=== PATIENT | female | born 1960 | race Caucasian/White ===

== ENCOUNTER 2024-11-08 07:30 | Outpatient (OUT) | payer MEDICARE, SELFPAY ==
[2024-11-08 08:04] LABS: Hematocrit 45.7 % (36.0-48.0); Hemoglobin 14.8 g/dL (12.0-16.0); Immature Granulocytes Abs Auto 0.04 10^3/uL (0.00-0.03); Immature Granulocytes Pct Auto 0.6 % (0.0-0.5); Lymphocytes Absolute Auto 2.1 10^3/uL (1.2-3.8); Mean Corpuscular HGB Conc 32.4 g/dL (29.9-35.2); Mean Corpuscular Hemoglobin 29.7 pg (26.7-34.0); Mean Corpuscular Volume 91.8 fL (81.0-99.0); Platelet Count 284 10^3/uL (150-450); Red Blood Count 4.98 10^6/uL (4.20-5.40); White Blood Count 6.6 10^3/uL (4.0-11.0)
[2024-11-08 09:05] LABS: Alanine Aminotransferase 18 U/L (14-59); Albumin Globulin Ratio 1.1; Albumin Level 4.1 g/dL (3.4-5.0); Alkaline Phosphatase 76 U/L (46-116); Anion Gap 13.3; Aspartate Amino Transferase 23 U/L (15-37); Blood Urea Nitrogen 15.0 mg/dL (7.0-18.0); Calcium 9.2 mg/dL (8.5-10.1); Carbon Dioxide 29.0 mmol/L (21.0-32.0); Chloride 99 mmol/L (98-107); Cholesterol 277 mg/dL (<=200); Estimated GFR (African America >60 (>=60 mL/min/1.73m^2); Estimated GFR (Non-African Ame >60 (>=60 mL/min/1.73m^2); Globulin 3.6 g/dL; Glucose 99 mg/dL (74-106); HDL Cholesterol 75 mg/dL (40-60); Potassium 4.3 mmol/L (3.5-5.1); Sodium 137 mmol/L (136-145); Total Protein 7.7 g/dL (6.4-8.2); Triglycerides 232 mg/dL (<=150); VLDL CHOLESTEROL 46.4 mg/dL
== END 2024-11-08 07:31 | disposition home or self-care (01) ==
PROVIDERS: PCP Nurse Practitioner Family; Visit Provider Nurse Practitioner Family
DX: E78.00 Pure hypercholesterolemia, unspecified (principal); I10 Essential (primary) hypertension
CPT/HCPCS: 36415; 80053; 80061; 85025

== ENCOUNTER 2024-11-23 12:45 | Outpatient (OUT) | payer MEDICARE, SELFPAY ==
--- OUTSIDE RECORDS SUMMARY | 2024-11-23 12:48 | XMS_ITS | Continuity of Care Document ---
Author Organization [facility] LOC Address [address] [facility] [place] [address] Care Team Providers Care Delimber Operator Name Role Phone Cheryl Ordonez Primary Care Provider + Encounters Date Type Department Care Team Description 10/13/2024 10:44 AM EDT Hospital Encounter [facility] Diagnostic Radiology [address] [place] [address] Ketan Zhou APRN-CNP Discharge Disposition: Home or Self Care 10/13/2024 10:30 AM EDT Office Visit [facility] [address] [facility] [address] [place] [address] Ketan Zhou APRN-CNP Sprain of left wrist, initial encounter (Primary Dx); Left wrist pain; Pain of left hand 09/06/2024 9:20 AM EDT Office Visit [facility] [address] [place] [address] Juju Nova APRN-CNP Lichen sclerosus of female genitalia (Primary Dx); Anogenital lichen sclerosus 05/13/2024 10:15 AM EST Office Visit [address] [phone] Cheryl Ordonez APRN-CNP Benign hypertension (Primary Dx); Gastroesophageal reflux disease without esophagitis; Arthralgia, unspecified joint; Anxiety disorder, unspecified type; Mixed hyperlipidemia 05/10/[address] [phone] Nettie Gerber LPN Order Request 05/06/2024 Travel 05/06/2024 3:45 PM EST Office Visit [facility] [address] [facility] [address] [place] [address] [place] Strep pharyngitis (Primary Dx); Sore throat; Bilateral impacted cerumen 04/19/2024 Travel 04/19/2024 12:05 PM EST Office Visit [facility] [address] [facility] [address] [place] [address] Lars Bowman CNP Influenza A (Primary Dx); Acute cough; Fever, unspecified fever cause 03/22/2024 Travel 03/22/2024 8:30 AM EST [facility] [address] [facility] [address] [place] [address] [place] Acute bronchitis, unspecified organism (Primary Dx); Cough, unspecified type 03/08/2024 Telephone [facility] [address] [phone] Rebekah Vila LPN Results 03/03/2024 10:40 AM EST Office Visit [facility] [address] [phone] Juju Nova, ADJUSTER ELECTRICAL CONTACTS-DIVISION SUPERVISOR Osteopenia of multiple sites (Primary Dx); Lichen sclerosus of female genitalia; Anogenital lichen sclerosus 03/03/2024 10:00 AM EST - 03/03/2024 11:59 PM EST Hospital Encounter [facility] [address] [phone] Juju Nova, ADJUSTER ELECTRICAL CONTACTS-DIVISION SUPERVISOR Discharge Disposition: Home or Self Care 01/21/2024 10:00 AM EDT Office Visit [facility] [address] Jose Ramon Quevedo [address] [address] Rajani Ceja, Adrian Ortega MD TIA (transient ischemic attack) (Primary Dx) 11/20/2023 8:13 AM EDT - 11/20/2023 11:59 PM EDT Hospital Encounter [facility] MAMMOGRAPHY [address] [place] [address] Juju Nova, ADJUSTER ELECTRICAL CONTACTS-DIVISION SUPERVISOR Discharge Disposition: Home or Self Care 11/19/[address] [place] [address] Miguelina Fallon LPN Medication Management 11/19/[address] [place] [address] Miguelina Fallon LPN Medication Management 11/19/2023 11:00 AM EDT Office Visit [address] [address] Jose C Piña MD TIA (transient ischemic attack) (Primary Dx); Arthralgia, unspecified joint; Anxiety disorder, unspecified type; Benign hypertension; Gastroesophageal reflux disease without esophagitis 11/11/2023 7:57 AM EDT - 11/12/2023 9:18 AM EDT Hospital Encounter [facility] [address] [place] [address] César Freeman MD Martin, Daniel R, MD Aziz, Farhad, MD Discharge Disposition: Home or Self Care 11/11/2023 Travel 11/11/2023 6:01 AM EDT - 11/11/2023 7:26 AM EDT Emergency [facility] Emergency Medicine [address] [place] [address] Britta Covington MD Discharge Disposition: [facility] 11/07/[address] [address] Cheryl Ordonez APRN-MARTINA Benign hypertension 11/02/[address] [address] Karin Son APRN-MARTINA Anxiety disorder, unspecified type 10/23/[address] [address] Cheryl Ordonez APRN-CNP Gastroesophageal reflux disease without esophagitis; Mixed hyperlipidemia 10/22/[address] [address] Cheryl Ordonez APRN-CNP Benign hypertension 10/15/2023 9:20 AM EDT Office Visit [facility] [address] [place] [phone] Juju Nova APRN-CNP Encounter for gynecological examination (general) (routine) with abnormal findings (Primary Dx); Screening for vaginal cancer; Encounter for screening mammogram for malignant neoplasm of breast; Screening for colon cancer 10/09/[address] [address] Cheryl Ordonez APRN-CNP Mixed hyperlipidemia; Arthralgia, unspecified joint; Gastroesophageal reflux disease without esophagitis 07/04/[address] [address] Jose C Piña MD Other 07/03/[address] [address] Cheryl Ordonez APRN-CNP Appointment 07/02/[address] [address] Karin Son APRN-MARTINA Anxiety disorder, unspecified type 07/02/[address] [address] Karin Son APRN-MARTINA Benign hypertension 07/02/2023 8:30 AM EDT Office Visit [address] [address] Karin Son APRN-MARTINA Anxiety disorder, unspecified type; Benign hypertension 06/19/2023 2:20 PM EDT Office Visit [facility] Otolaryngology [address] [place] [phone] James Page MD Allergic rhinitis due to dust (Primary Dx); Dysfunction of both eustachian tubes; Bilateral impacted cerumen; Right ear pain 06/07/[address] [place] [address] Karin Son, ADJUSTER ELECTR[employer] CONTACTS-MARTINA Anxiety disorder, unspecified type 06/06/2023 Telephone [facility] [address] [place] [address] Carla Roa CNP Appointment 06/05/[address] [place] [address] Katy Collado LPN Results 06/04/2023 9:15 AM EDT Office Visit [address] [place] [address] Cheryl Ordonez, ADJUSTER ELECTRICAL CONTACTS-Karin Saldaña, ADJUSTER ELECTRICAL CONTACTS-DIVISION SUPERVISOR Dizziness (Primary Dx); Benign hypertension; Anxiety disorder, unspecified type 06/02/2023 10:30 AM EDT Office Visit [facility] 600 [facility] 201 [place] [address] Gali Gold, ADJUSTER ELECTRICAL CONTACTS-DIVISION SUPERVISOR Juan DiegoTimbo, [place] Influenza B (Primary Dx); Cough, unspecified type; Sinus congestion 05/14/[address] [place] [address] Jose C Piña MD Referral 05/13/[address] [place] [address] Maria Del Rosario Villalpando Referral 05/12/2023 Travel 05/12/2023 12:44 PM EST - 05/12/2023 3:49 PM EST Emergency [facility] Emergency Medicine [address] [place] [phone] Tin Lennon MD Discharge Disposition: Home or Self Care 05/07/2023 9:00 AM EST Office Visit [address] [place] [address] Karin Son, ADJUSTER ELECTRICAL CONTACTS-DIVISION SUPERVISOR Anxiety disorder, unspecified type (Primary Dx); Mixed hyperlipidemia; Primary hypertension 04/24/[address] [address] Farnsworth Nettie Results 04/23/2023 9:45 AM EST Office Visit [address] [address] Karin Son, ADJUSTER ELECTRICAL CONTACTS-DIVISION SUPERVISOR Anxiety disorder, unspecified type (Primary Dx); Mixed hyperlipidemia; Benign hypertension; Arthralgia, unspecified joint; Gastroesophageal reflux disease without esophagitis 04/22/[address] [address] Jose C Piña MD Irritable bowel syndrome, unspecified type 04/20/2023 Travel 04/20/2023 8:35 AM EST - 04/20/2023 10:35 AM EST Emergency [facility] Medicine [address] [place] [phone] Ayse Saldaña DO Discharge Disposition: Home or Self Care 04/18/[address] [address] Jose C Piña MD Appointment 04/17/2023 11:41 AM EST - 04/17/2023 2:04 PM EST Emergency [facility] Emergency Department [address] [place] [phone] Hunter Davis MD Discharge Disposition: Home or Self Care 03/31/2023 9:20 AM EST Office Visit [facility] Otolaryngology [address] [place] [phone] James Page MD Allergic rhinitis due to dust (Primary Dx); Chronic sinusitis, unspecified location; Hearing loss of right ear, unspecified hearing loss type; Impacted cerumen of right ear; Post-nasal drip; Dysfunction of both eustachian tubes 03/24/[address] [address] Jose C Piña MD Gastroesophageal reflux disease without esophagitis 03/12/2023 Travel 03/12/2023 10:00 AM EST Office Visit [facility] [address] [address] Juju Nova, ADJUSTER ELECTRICAL CONTACTS-DIVISION SUPERVISOR Lichen sclerosus of female genitalia (Primary Dx); Anogenital lichen sclerosus 12/18/2022 9:40 AM EDT Office Visit [facility] [address] [address] Juju Nova, ADJUSTER ELECTRICAL CONTACTS-DIVISION SUPERVISOR Lichen sclerosus of female genitalia; Anogenital lichen sclerosus 11/13/2022 11:20 AM EDT Office Visit [facility] [address] [address] Juju Nova, ADJUSTER ELECTRICAL CONTACTS-DIVISION SUPERVISOR Lichen sclerosus of female genitalia (Primary Dx); Anogenital lichen sclerosus 10/21/2022 8:18 AM EDT - 10/21/2022 11:59 PM EDT Hospital Encounter [address] [address] Juju Nova, ADJUSTER ELECTRICAL CONTACTS-DIVISION SUPERVISOR Discharge Disposition: Home or Self Care 10/11/2022 Travel 10/11/2022 8:30 AM EDT Office Visit [facility] [address] [address] Juju Nova, ADJUSTER ELECTRICAL CONTACTS-DIVISION SUPERVISOR Encounter for gynecological examination (general) (routine) with abnormal findings (Primary Dx); Screening for vaginal cancer; Encounter for screening mammogram for malignant neoplasm of breast; Screening for colon cancer; Lichen sclerosus of female genitalia; Anogenital lichen sclerosus 09/25/2022 9:30 AM EDT Office Visit [address] [address] Jose C Piña MD Irritable bowel syndrome, unspecified type (Primary Dx); Mixed hyperlipidemia; Arthralgia, unspecified joint; Gastroesophageal reflux disease without esophagitis 09/18/[address] [address] Jose C Piña MD Gastroesophageal reflux disease without esophagitis 03/26/2022 9:40 AM EST Office Visit [facility] [address] [place] [phone] Jose C Piña MD Gastroesophageal reflux disease without esophagitis (Primary Dx); Mixed hyperlipidemia; Arthralgia, unspecified joint 11/06/2021 Telephone [facility] Neurology [address] [place] [address] Richelle Rhodes MA Other 10/18/2021 7:51 AM EDT - 10/18/2021 11:59 PM EDT Hospital Encounter [address] [address] Juju Nova, ADJUSTER ELECTRICAL CONTACTS-DIVISION SUPERVISOR Discharge Disposition: Home or Self Care 10/09/2021 Travel 10/09/2021 10:50 AM EDT Office Visit [facility] [address] [place] [phone] Megan Villalobos MD Hay, Ami L, ADJUSTER ELECTRICAL CONTACTS-DIVISION SUPERVISOR Encounter for gynecological examination without abnormal finding (Primary Dx); Screening for vaginal cancer; Encounter for screening mammogram for malignant neoplasm of breast; Screening for colon cancer; Osteopenia of multiple sites 09/25/2021 11:00 AM EDT Office Visit [address] [address] Jose C Piña MD Mixed hyperlipidemia; Trochanteric bursitis of right hip; Gastroesophageal reflux disease without esophagitis 09/13/2021 6:19 PM EDT - 09/13/2021 10:43 PM EDT Emergency [facility] Emergency Department [address] [place] [phone] Discharge Disposition: Home or Self Care 08/04/2021 7:29 AM EDT - 08/04/2021 11:59 PM EDT Hospital Encounter [facility] MRI [address] [place] [phone] Michael Noyola MD Discharge Disposition: Home or Self Care 08/04/2021 7:29 AM EDT - 08/04/2021 11:59 PM EDT Hospital Encounter [facility] MRI [address] [place] [phone] Michael Noyola MD Discharge Disposition: Home or Self Care 07/31/2021 8:00 AM EDT Office Visit [facility] Neurology [address] [place] [phone] Michael Noyola MD Primary thunderclap headache (Primary Dx); Other headache syndrome 07/17/2021 Orders Only [facility] Otolaryngology [address] [place] [phone] Donny Alvarado LPN Dizziness and giddiness (Primary Dx); Intractable migraine with aura without status migrainosus 06/22/2021 Orders Only [facility] Otolarynlogy [address] [place] [phone] Donny Alvarado LPN Dizziness and giddiness (Primary Dx); Bilateral impacted cerumen; Eustachian tube dysfunction, bilateral 06/22/2021 8:40 AM EDT Office Visit [facility] Otolaryngology [address] [place] [phone] Mauricio Henriquez MD Bilateral impacted cerumen (Primary Dx); Intractable migraine with aura without status migrainosus; Dizziness and giddiness 06/22/2021 9:00 AM EDT Office Visit [facility] Audiology [address] [place] [phone] Alisson Fritz A Morell Diaz, Fernando, MD [facility] Hearing conservation and treatment exam (Primary Dx); Ear fullness, bilateral 05/29/2021 Telephone [facility] Medicine [address] [place] [phone] Zuleika Burkett LPN Results (Holter Monitor Results ) 05/10/2021 12:42 PM EST Hospital Encounter [facility] CT Scan [address] [place] [phone] Cheryl Ordonez, ADJUSTER ELECTRICAL CONTACTS-DIVISION SUPERVISOR Discharge Disposition: Home or Self Care 05/10/2021 12:43 PM EST - 05/10/2021 11:59 PM EST Hospital Encounter [facility] Stock Room Manager [address] [place] [phone] Cheryl Ordonez APRN-CNP Discharge Disposition: Home or Self Care 04/24/2021 11:30 AM EST Office Visit [address] [address] Cheryl Ordonez APRN-CNP Elevated BP without diagnosis of hypertension (Primary Dx); Heart palpitations; Dizziness; Sinus pain; TIA (transient ischemic attack) 03/27/2021 1:45 PM EST Office Visit [address] [address] Cheryl Ordonez APRN-CNP Gastroesophageal reflux disease without esophagitis (Primary Dx); Trochanteric bursitis of right hip; Mixed hyperlipidemia; Migraine with aura and without status migrainosus, not intractable 02/26/[address] [address] Jose C Piña MD Mixed hyperlipidemia; Trochanteric bursitis of right hip; Gastroesophageal reflux disease without esophagitis 02/16/2021 Travel 02/16/2021 4:24 AM EST - 02/16/2021 10:19 AM EST Emergency [facility] Emergency Department [address] [place] [phone] Hunter Davis MD Discharge Disposition: Home or Self Care 02/11/2021 3:40 PM EST Office Visit [facility] [address] [address] King Weiss, [facility] COVID-19 (Primary Dx); Acute maxillary sinusitis, recurrence not specified; Fever, unspecified fever cause 02/08/[address] [address] Jose C Piña MD Gastroesophageal reflux disease without esophagitis 10/17/2020 2:15 PM EDT Office Visit [facility] [place] [address] [place] [address] Iris Rosales II, MD Diverticulosis of large intestine without perforation or abscess without bleeding (Primary Dx) 10/12/2020 9:23 AM EDT - 10/12/2020 11:59 PM EDT Hospital Encounter [facility]MO[facility]HY [address] [facility] [place] [address] Juju Nova, ADJUSTER ELECTRICAL CONTACTS-DIVISION SUPERVISOR Discharge Disposition: Home or Self Care 10/04/2020 Travel 10/04/2020 8:30 AM EDT Office Visit [facility] [address] [place] [address] Darion Otriz MD Hay, Ami L, ADJUSTER ELECTRICAL CONTACTS-DIVISION SUPERVISOR Encounter for gynecological examination without abnormal finding (Primary Dx); Screening for vaginal cancer; Encounter for breast cancer screening using non-mammogram modality; Screening for colon cancer; Osteopenia of multiple sites 10/02/2020 Travel 10/02/2020 9:30 AM EDT - 10/02/2020 10:00 AM EDT Surgery [facility] Periop [address] [place] [address] Iris Rosales II, MD COLONOSCOPY FOR COLORECTAL CANCER SCREENING HIGH RISK INDIVIDUAL 10/02/2020 9:11 AM EDT Anesthesia Event [facility] Periop [address] [place] [address] René Regan, [employer] ADVOCATE CLERK/SPECIALIST 10/02/2020 7:20 AM EDT - 10/02/2020 10:34 AM EDT Hospital Encounter [facility] Periop [address] [place] [address] Iris Rosales II, MD History of colonic polyps Discharge Disposition: Home or Self Care 09/29/2020 Telephone [facility] [place] [address] [place] [address] Richlele Sy LPN Results 09/19/2020 Telephone [facility] [place] [address] [place] [address] Jose C Piña MD Other 09/07/2020 1:45 PM EDT Office Visit [facility] [place] [address] [place] [address] Iris Rosales II, MD History of colonic polyps (Primary Dx); Screening for viral disease 08/04/2020 1:40 PM EDT Office Visit [address] [phone] Jose C Piña MD Mixed hyperlipidemia (Primary Dx); Obesity (BMI 30.0-34.9); Gastroesophageal reflux disease without esophagitis; Trochanteric bursitis of right hip 07/27/[address] [phone] Richelle Hunt MA Labs Only 02/04/2020 1:50 PM EST Office Visit [address] [phone] Jose C Piña MD Trochanteric bursitis of right hip; Mixed hyperlipidemia 01/01/2020 10:05 AM EDT Office Visit [facility] [address] [place] [address] Kerry Orellana PA Herpes zoster with complication (Primary Dx) 12/30/2019 9:30 AM EDT Office Visit [address] [phone] Gabbi Monique APRN-MARTINA Herpes zoster without complication (Primary Dx) 10/05/2019 12:49 PM EDT - 10/05/2019 1:08 PM EDT Hospital Encounter [facility] [address] [place] [address] Juju Nova ADJUSTER ELECTRICAL CONTACTS-DIVISION SUPERVISOR Discharge Disposition: Home or Self Care 10/05/2019 1:09 PM EDT - 10/05/2019 11:59 PM EDT Hospital Encounter [facility]AMMO[facility]AP[facility] [address] [place] [phone] Juju Nova ADJUSTER ELECTRICAL CONTACTS-DIVISION SUPERVISOR Discharge Disposition: Home or Self Care 08/11/2019 Travel 08/11/2019 1:50 PM EDT Office Visit [address] [phone] Jose C Piña MD Gastroesophageal reflux disease, esophagitis presence not specified; Trochanteric bursitis of right hip; Mixed hyperlipidemia 08/09/2019 Travel 08/09/2019 1:40 PM EDT Office Visit [facility] [place] [phone] Juju Nova, ADJUSTER ELECTRICAL CONTACTS-DIVISION SUPERVISOR Encounter for gynecological examination without abnormal finding (Primary Dx); Screening for vaginal cancer; Screening for breast cancer; Screening for colon cancer; Osteopenia of multiple sites 08/05/2019 Telephone [facility] Medicine [address] [place] [phone] Carol Peterson LPN Other 08/04/[address] [address] Jose C Piña MD Results 03/29/2019 Travel 03/29/2019 10:06 AM EST - 03/29/2019 11:59 PM EST Hospital Encounter [facility] Radiology [address] [place] [phone] Dion Montgomery, DO Discharge Disposition: Home or Self Care 03/29/2019 10:15 AM EST Office Visit [facility] Orthopedics [address] [place] [phone] Dion Montgomery, Right knee pain, unspecified chronicity (Primary Dx) 03/10/[address] [address] Peggy Sellers LPN Results 03/08/2019 1:56 PM EST - 03/08/2019 11:59 PM EST Hospital Encounter [facility] Diagnostic Radiology [address] [place] [phone] Gabbi Monique, ADJUSTER ELECTRICAL CONTACTS-DIVISION SUPERVISOR Discharge Disposition: Home or Self Care 03/08/2019 Travel 03/08/2019 1:50 PM EST Office Visit [address] [phone] Gabbi Monique, ADJUSTER ELECTRICAL CONTACTS-DIVISION SUPERVISOR Acute pain of right knee (Primary Dx) 02/12/[address] [address] Richelle Hunt MA Mixed hyperlipidemia; Gastroesophageal reflux disease, esophagitis presence not specified 11/09/2018 Travel 11/09/2018 3:00 PM EDT Office Visit [address] [address] Jose C Piña MD Health maintenance examination (Primary Dx); Mixed hyperlipidemia; Trochanteric bursitis of right hip; Gastroesophageal reflux disease, esophagitis presence not specified 10/29/[address] [address] Jose C Piña MD Order Request 09/08/2018 Travel 09/08/2018 9:19 AM EDT - 09/08/2018 11:59 PM EDT Hospital Encounter [address] [address] Juju Nova, ADJUSTER ELECTRICAL CONTACTS-DIVISION SUPERVISOR Discharge Disposition: Home or Self Care 08/07/[address] [address] Miguelina Fallon LPN Trochanteric bursitis of right hip 07/29/2018 Travel 07/29/2018 10:00 AM EDT Office Visit [facility] [address] [facility] [address] [place] [phone] Darion Ortiz MD Hay, Ami L, ADJUSTER ELECTRICAL CONTACTS-DIVISION SUPERVISOR Encounter for gynecological examination without abnormal finding (Primary Dx); Screening for vaginal cancer; Screening for breast cancer; Screening for colon cancer 07/24/[address] [address] Jose C Piña MD Mixed hyperlipidemia; Gastroesophageal reflux disease, esophagitis presence not specified 07/06/[address] [address] Jose C Piña MD 06/30/[address] [address] Jose C Piña MD 05/23/2018 9:30 AM EST Office Visit [facility] [address] [facility] [address] [place] [address] Karin Son, ADJUSTER ELECTRICAL CONTACTS-DIVISION SUPERVISOR Viral URI with cough (Primary Dx); Cough 12/24/2017 10:00 AM EDT Office Visit [facility] [address] [facility] [address] [place] [phone] Darion Ortiz MD ASCUS of cervix with negative high risk HPV (Primary Dx); Screening for breast cancer 12/19/2017 11:30 AM EDT Office Visit [address] [address] Jose C Piña MD Mixed hyperlipidemia (Primary Dx); Arthralgia of multiple joints; Obesity: body mass index of 30.0-34.9; Trochanteric bursitis of right hip; Gastroesophageal reflux disease, esophagitis presence not specified 12/09/[address] [address] Jose C Piña MD Order Request (Need Yearly Labs) 11/26/[address] [address] Jose C Piña MD 11/22/[address] [address] Jose C Piña MD 08/29/2017 8:42 AM EDT - 08/29/2017 11:59 PM EDT Hospital Encounter [facility] Mammography [address] [place] [phone] Domi Ochoa, ADJUSTER ELECTRICAL CONTACTS-DIVISION SUPERVISOR Discharge Disposition: Home or Self Care 08/19/[address] [address] Jose C Piña MD 06/25/2017 Telephone [facility] [address] [facility] [address] [place] [phone] Megan Perez, CHARLES Results (Pap) 06/16/2017 1:30 PM EDT Office Visit [facility] [address] [address] Darion Ortiz MD Gill[place], Sherri L, ADJUSTER ELECTRICAL CONTACTS-DIVISION SUPERVISOR Encounter for gynecological examination without abnormal finding (Primary Dx); Colon cancer screening; Encounter for screening mammogram for malignant neoplasm of breast; Osteopenia, unspecified location 04/23/2017 4:30 PM EST Office Visit [address] [phone] Jose C Piña MD Pain of left lower extremity (Primary Dx); Arthralgia of multiple joints 02/17/[address] [phone] Nivia Carrillo MA Mixed hyperlipidemia 01/06/2017 12:30 PM EDT Office Visit [address] [phone] Jose C Piña MD Mixed hyperlipidemia (Primary Dx); Arthralgia of multiple joints; Trochanteric bursitis of right hip 12/03/2016 Orders Only [address] [phone] Jose C Piña MD Mixed hyperlipidemia (Primary Dx) 12/03/[address] [phone] Darlin Vicente LPN 07/19/2016 Orders Only [facility]G [facility]ILLER [address] [address] Ananya Liao LPN Osteopenia (Primary Dx) 07/17/2016 Refill [facility] 1200 [facility] [address] [place] [phone] Darion Ortiz MD Osteopenia (Primary Dx) Allergies No known active allergies Medications Multiple Vitamins-Minerals (MULTIVITAMIN ADULT) Tab take 1 tablet by mouth daily. Active Ascorbic Acid (VITAMIN C) 1000 MG Tab Take 1 tablet by mouth daily. Active Coenzyme Q10 (COQ10) 100 MG Cap Take 2 capsules by mouth daily. Active Calcium-Vitamin D-Vitamin K 750-500-40 MG-UNT-MCG tablet take 1 tablet by mouth daily. Active Meclizine 25 MG tablet Take 1 tablet by mouth 3 times daily as needed for Dizziness. 20 tablet 04/17/19 24 Active aspirin 81 MG Chew Tab chewable tablet Chew 1 tablet daily. 30 tablet 11/12/19 24 Active Losartan 25 MG tabletIndications: Benign hypertension Take 1 tablet by mouth daily. 90 tablet 1 05/13/19 25 Active Pantoprazole [address] tablet DRIndications:Afshin roesophageal reflux disease without esophagitis Take 1 tablet by mouth daily. 90 tablet 1 05/13/19 25 Active Celecoxib 200 MG capsuleIndications :Arthralgia, unspecified joint Take 1 capsule by mouth 2 times daily. 180 capsule 1 05/13/19 25 Active ALPRAZolam 0.5 MG tablet take 1 tablet by mouth twice a day if needed for anxiety for up to 7 days 07/31/19 24 Active Atorvastatin 40 MG tabletIndications: Mixed hyperlipidemia Take 1 tablet by mouth daily. 90 tablet 1 05/13/19 25 Active Escitalopram (Lexapro) 10 MG tabletIndications: Anxiety disorder, unspecified type Take 1.5 tablets by mouth daily. 135 tablet 1 06/22/19 25 Active Clobetasol 0.05 % OintmentIndication s:Lichen sclerosus of female genitalia,Anogenit al lichen sclerosus Apply 1 Application topically every Friday, Friday and Friday. 45 g 1 09/07/19 25 Active biotin 1000 MCG tablet Take 1 tablet by mouth daily. Active Active Problems Problem Noted Date Diagnosed Date Gastroesophageal reflux disease without esophagi tis 03/26/2022 History of colonic polyps 09/07/2020 Overview (09/07/2020): Added automatically from request for surgery [id number] Obesity: body mass index of 30.0-34.9 12/19/2017 Mixed hyperlipidemia 01/06/2017 Arthralgia 01/06/2017 Resolved Problems Problem Noted Date Diagnosed Date Resolved Date Trochanteric bursitis of right hip 01/06/2017 03/26/2022 Family History Medical History Relation Name Comments Cancer- Other Brother 1 Enrique Menendez Myocardial Infarction Brother 1 Enrique Menendez Stomach Cancer Brother 1 Enrique Menendez Crohn's Disease Brother 2 Ludin Menendez Diabetes Brother 2 Ludin Menendez Thyroid Disease Daughter Brea's thyroiditis, thyroidectomy Diabetes Father Jas Menendez Hypertension Father Jas Menendez Osteoporosis Father Jas Menendez Stroke Father Jas Menendez Hypertension Mother Kaley Menendez Osteoporosis Mother Kaley Menendez Other - Specify Mother Kaley Menendez CVA in [place] [facility] home Stroke Mother Kaley Menendez Thyroid Disease Mother Kaley Menendez Diabetes Paternal Grandmother Esther Menendez Relation Name Status Comments Brother 1 Enrique Menendez Brother 2 Ludin Menendez Alive Daughter Father Jas Menendez Maternal Grandfather Maternal Grandmother Mother Kaley Menendez Paternal Grandfather Paternal Grandmother Esther Menendez Social History Smoking Status as of 11/23/2024 Tobacco Use Types Packs/Day Years Used Date Smoking Tobacco: Never Assessed Sex and Gender Information Value Date Recorded Sex Assigned at Not on file Legal Sex Female 4:59 PM EST Gender Identity Female Sexual Orientation Choose not to disclose 2023 12:49 PM EST Last Filed Vital Signs Vital Sign Reading Time Taken Comments Blood Pressure 148/80 10/13/2024 10:34 AM EDT Pulse 74 10/13/2024 10:34 AM EDT Temperature 36.8 C (98.2 F) 10/13/2024 10:34 AM EDT Respiratory Rate 16 10/13/2024 10:3 4 AM EDT Oxygen Saturation 96% 10/13/2024 10: 34 AM EDT Inhaled Oxygen Concentration - - Weight 84.2 kg (185 lb 11.2 oz) 025 10:34 AM EDT Height 160 cm (5' 3 ) 10/13/2024 10:34 AM EDT Body Mass Index 32.9 10/13/2024 10:34 AM EDT Plan of Treatment Upcoming Encounters Date Type Department Care Team (Late st Contact Info) Description 03/08/2025 10:00 AM EST Office Visit [facility] [address] [place] [phone] Juju Nova, ADJUSTER ELECTRICAL CONTACTS-DIVISION SUPERVISOR [address] [place] [phone] Procedures Procedure Name Priority Date/Time Associated Diagnosis Comments XR HAND LEFT 3+ VIEWS Routine 10/13/2024 10:56 AM EDT Pain of left hand HC CBC EDIFF & PLATELET Today 05/11/2024 9:55 AM EST Benign hypertension Routine lab draw COMPREHENSIVE METABOLIC PANEL Today 05/11/2024 9:55 AM EST Benign hypertension Routine lab draw LIPID PANEL W CALCULATED LDL Today 05/11/2024 9:55 AM EST Benign hypertension Routine lab draw TSH W/FT4 REFLEX Today 05/11/2024 9:55 AM EST Benign hypertension Routine lab draw POCT RAPID STREP A Routine 05/06/2024 4: 32 PM EST Sore throat SARS-COV-2 RAPID ANTIGEN (CLINIC ONLY) STAT 04/19/2024 1:02 PM EST Acute cough Fever, unspecified fever cause POCT INFLUENZA, A B Routine 04/19/2024 1 2:50 PM EST Acute cough Fever, unspecified fever cause SARS-COV-2 RAPID ANTIGEN (CLINIC ONLY) STAT 03/22/2024 8:42 AM EST Cough, unspecified type VITAMIN D (25-HYDROXY,TOTAL) Today 03/03/2024 11:48 AM EST Osteopenia of multiple sites BONE DENSITY AXIAL (HIP, PELVIS, SPINE) Routine 03/03/2024 10:44 AM EST Osteopenia of multiple sites MOBILE CARDIAC TELEMETRY 12/18/2023 11:59 PM EDT MAMMO SCREENING WITH NAPOLEON BILATERAL Routine 11/20/2023 8:34 AM EDT Encounter for screening mammogram for malignant neoplasm of breast CONTINUOUS CARDIAC MONITORING STRIP 11/12/2023 2:00 AM EDT ECHOCARDIOGRAM STUDY DETAILS BILLING STAT 11/11/2023 3:52 PM EDT TIA (transient ischemic attack) MRI BRAIN WITHOUT CONTRAST STAT 11/11/2023 1:21 PM EDT URINE DRUG SCREEN 10 STAT 11/11/2023 11:56 AM EDT MONITOR REPORTS Routine 11/11/2023 10:35 AM EDT CONTINUOUS CARDIAC MONITORING STRIP 11/11/2023 10:35 AM EDT CARDIAC RHYTHM Routine 11/11/2023 10:34 AM EDT HEMOGLOBIN A1C STAT 11/11/2023 8:39 AM EDT LIPID PANEL W CALCULATED LDL STAT 11/11/2023 8:39 AM EDT CBC AND ELECTRONIC DIFF STAT 11/11/2023 8:39 AM EDT LAVENDER TOP TUBE STAT 11/11/2023 8:3 9 AM EDT MINT GREEN TOP TUBE STAT 11/11/2023 8 :39 AM EDT GOLD TOP TUBE STAT 11/11/2023 8:39 AM EDT HIGH SENSITIVITY TROPONIN I - SINGLE ORDER STAT 11/11/2023 8:39 AM EDT PTT STAT 11/11/2023 8:39 AM EDT PTINR-STROKE STAT 11/11/2023 8:39 AM EDT HEPATIC FUNCTION PANEL STAT 8:39 AM EDT CHM 7 - ED STAT 11/11/2023 8:39 AM EDT CBC, EDIF, PLATELET STAT 11/11/2023 8 :39 AM EDT RAINBOW DRAW STAT 11/11/2023 8:39 AM EDT ECG STAT 11/11/2023 8:[address] ANGIO BRAIN/NECK STAT 11/11/2023 8 :[address] CEREBRAL PERFUSION ANALYSIS STAT 11/11/2023 8:[address] STROKE HEAD-STROKE ALERT ONLY STAT 11/11/2023 8:[address] ANGIO BRAIN/NECK STAT 11/11/2023 7 :07 AM EDT URINE MICROSCOPIC Routine 11/11/2023 6:5 6 AM EDT URINALYSIS, MACRO STAT 11/11/2023 6:5 6 AM EDT HC CCH TOXICOLOGY SCREEN STAT 11/11/2023 6:56 AM EDT ALCOHOL (ETHANOL),BLOOD STAT 11/11/2023 6:15 AM EDT PROTIME-INR STAT 11/11/2023 6:15 AM EDT COMPREHENSIVE METABOLIC PANEL STAT 11/11/2023 6:15 AM EDT HC CBC EDIFF & PLATELET STAT 11/11/2023 6:15 AM EDT GLUCOSE (POC DEVICE) Routine 11/11/2023 6:[address] STROKE HEAD-STROKE ALERT ONLY Routine 11/11/2023 6:08 AM EDT POCT OCCULT BLOOD STOOL Routine 10/15/2023 10:08 AM EDT Screening for colon cancer [place] REMOVAL IMPACTED CERUMEN INSTRUMENTATION UNILAT Routine 06/19/2023 2:20 PM EDT Bilateral impacted cerumen Right ear pain KENY MULTIPLEX SCRN WITH REFLEX Today 06/04/2023 9:59 AM EDT Dizziness POCT INFLUENZA, A B STAT 06/02/2023 1 1:07 AM EDT Cough, unspecified type Sinus congestion SARS-COV-2 RAPID ANTIGEN (CLINIC ONLY) STAT 06/02/2023 10:54 AM EDT Cough, unspecified type Sinus congestion COMPREHENSIVE METABOLIC PANEL STAT 05/12/2023 2:19 PM EST HC CBC EDIFF & PLATELET STAT 05/12/2023 2:19 PM EST C REACTIVE PROTEIN MADELAINE 05/12/2023 2: 19 PM EST MAGNESIUM STAT 05/12/2023 2:19 PM EST SEDIMENTATION RATE, AUTOMATED STAT 05/12/2023 2:19 PM EST URINE MICROSCOPIC Routine 05/12/2023 2:0 4 PM EST URINALYSIS, MACRO STAT 05/12/2023 2:0 4 PM EST URINE CULTURE Routine 05/12/2023 2:04 PM EST ECG STAT 05/12/2023 12:48 PM EST CARDIAC RHYTHM Routine 05/12/2023 11:27 AM EST ECG (SCANNED) Routine 05/12/2023 11:23 AM EST TSH W/FT4 REFLEX Today 04/24/2023 8:14 AM EST Anxiety disorder, unspecified type CHOLESTEROL TOTAL Today 04/24/2023 8:1 4 AM EST Mixed hyperlipidemia CARDIAC RHYTHM Routine 04/20/2023 4:11 PM EST ECG (SCANNED) Routine 04/20/2023 11:11 AM EST [facility]EL CORON[facility]IRUS LAB 1 - NASOPHARYNGEAL MADELAINE 04/20/2023 9:35 AM EST XR CHEST PA AND LATERAL 2 VIEWS STAT 04/20/2023 9:[address] HEAD WITHOUT CONTRAST STAT 04/20/2023 9:26 AM EST TROPONIN STAT 04/20/2023 9:16 AM EST COMPREHENSIVE METABOLIC PANEL STAT 04/20/2023 9:16 AM EST HC CBC EDIFF & PLATELET STAT 04/20/2023 9:16 AM EST ECG STAT 04/20/2023 8:42 AM EST CHEM 7 (LYTES,BUN,CREA,GLUC) STAT 04/17/2023 12:54 PM EST HC CBC EDIFF & PLATELET STAT 04/17/2023 12:54 PM EST TROPONIN STAT 04/17/2023 11:55 AM EST ECG STAT 04/17/2023 11:47 AM EST ECG (SCANNED) Routine 04/17/2023 8:40 AM EST [place] REMOVAL IMPACTED CERUMEN INSTRUMENTATION UNILAT Routine 03/31/2023 9:20 AM EST Hearing loss of right ear, unspecified hearing loss type Impacted cerumen of right ear [place] NASAL ENDOSCOPY DIAGNOSTIC UNI/BI SPX Routine 03/31/2023 9:20 AM EST Allergic rhinitis due to dust Chronic sinusitis, unspecified location Post-nasal drip MAMMO SCREENING WITH NAPOLEON BILATERAL Routine 10/21/2022 8:43 AM EDT Encounter for screening mammogram for malignant neoplasm of breast POCT OCCULT BLOOD STOOL Routine 10/11/2022 8:42 AM EDT Screening for colon cancer HC CBC EDIFF & PLATELET Routine 03/21/2022 8:40 AM EST Routine general medical examination at a health care facility COMPREHENSIVE METABOLIC PANEL Routine 03/21/2022 8:40 AM EST Routine general medical examination at a health care facility LIPID PANEL W CALCULATED LDL Routine 03/21/2022 8:40 AM EST Mixed hyperlipidemia TSH Routine 03/21/2022 8:40 AM EST Routine general medical examination at a health care facility MAMMO SCREENING WITH NAPOLEON BILATERAL Routine 10/18/2021 8:08 AM EDT Encounter for screening mammogram for malignant neoplasm of breast POCT OCCULT BLOOD STOOL Routine 10/09/2021 11:23 AM EDT Screening for colon cancer CBC,PLATELETS Routine 09/19/2021 7:34 AM EDT Routine general medical examination at a health care facility COMPREHENSIVE METABOLIC PANEL Routine 09/19/2021 7:34 AM EDT Routine general medical examination at a [facility] facility LIPID PANEL W CALCULATED LDL Routine 09/19/2021 7:34 AM EDT Mixed hyperlipidemia Routine general medical examination at a [facility] care facility TSH W/FT4 REFLEX Routine 09/19/2021 7:34 AM EDT Routine general medical examination at a health care facility [facility]EL CORONAVIRUS LAB 1 - NASOPHARYNGEAL STAT 09/13/2021 8:05 PM EDT XR CHEST AP PORTABLE STAT 09/13/2021 7:58 PM EDT CHEM 7 (LYTES,BUN,CREA,GLUC) STAT 09/13/2021 7:09 PM EDT HC CBC EDIFF & PLATELET STAT 09/13/2021 7:09 PM EDT MRI BRAIN WITHOUT CONTRAST Routine 08/04/2021 8:08 AM EDT Primary thunderclap headache MRI ARTERIOGRAM BRAIN WITHOUT CONTRAST Routine 08/04/2021 8:08 AM EDT Primary thunderclap headache HOLTER MONITOR - PLANIMETER OPERATOR Routine 05/28/2021 7:39 AM EST Heart palpitations CT HEAD WITHOUT CONTRAST Routine 05/10/2021 12:49 PM EST TIA (transient ischemic attack) HC CBC EDIFF & PLATELET Routine 03/29/2021 8:50 AM EST Mixed hyperlipidemia COMPREHENSIVE METABOLIC PANEL Routine 03/29/2021 8:50 AM EST Mixed hyperlipidemia LIPID PANEL W CALCULATED LDL Routine 03/29/2021 8:50 AM EST Mixed hyperlipidemia XR CHEST AP PORTABLE STAT 02/16/2021 5:32 AM EST ECG STAT 02/16/2021 5:04 AM EST TROPONIN I, HIGH SENSITIVITY STAT 02/16/2021 4:31 AM EST LIPASE STAT 02/16/2021 4:31 AM EST LACTATE, BLOOD STAT 02/16/2021 4:31 AM EST COMPREHENSIVE METABOLIC PANEL STAT 02/16/2021 4:31 AM EST HC CBC EDIFF & PLATELET STAT 02/16/2021 4:31 AM EST ECG (SCANNED) Routine 02/16/2021 SARS-COV-2 RAPID STAT 02/11/2021 3:56 PM EST Fever, unspecified fever cause MAMMO SCREENING WITH NAPOLEON BILATERAL Routine 10/12/2020 9:38 AM EDT Encounter for breast cancer screening using non-mammogram modality [place] COLORECTAL SCRN; HI RISK IND 10/02/2020 9:11 AM EDT History of colonic polyps COLONOSCOPY Routine 10/02/2020 8:38 AM EDT ORDERS (SCAN) Routine 10/02/2020 NOVEL CORONAVIRUS LAB 1 - NASOPHARYNGEAL STAT 09/29/2020 8:40 AM EDT Screening for viral disease CBC,PLATELETS Routine 07/29/2020 8:04 AM EDT Mixed hyperlipidemia COMPREHENSIVE METABOLIC PANEL Routine 07/29/2020 8:04 AM EDT Mixed hyperlipidemia LIPID PANEL W CALCULATED LDL Routine 07/29/2020 8:04 AM EDT Mixed hyperlipidemia TSH Routine 07/29/2020 8:04 AM EDT Mixed hyperlipidemia HC CBC EDIFF & PLATELET Routine 11/18/2019 7:17 AM EDT Mixed hyperlipidemia TSH Routine 11/18/2019 7:17 AM EDT Mixed hyperlipidemia COMPREHENSIVE METABOLIC PANEL Routine 11/18/2019 7:17 AM EDT Mixed hyperlipidemia LIPID PANEL W CALCULATED LDL Routine 11/18/2019 7:17 AM EDT Mixed hyperlipidemia MAMMO SCREENING WITH NAPOLEON BILATERAL Routine 10/05/2019 1:29 PM EDT Screening for breast cancer BONE DENSITY AXIAL (HIP, PELVIS, SPINE) Routine 10/05/2019 1:25 PM EDT Osteopenia of multiple sites POCT OCCULT BLOOD STOOL Routine 08/09/2019 2:03 PM EDT Screening for colon cancer PAP IG, RFX HPV ASCU Routine 08/09/2019 1:29 PM EDT XR KNEE RIGHT 4+ VIEWS Routine 9 3:17 PM EST Acute pain of right knee LABS (OUTSIDE) Routine 11/05/2018 MAMMO SCREENING BILATERAL Routine 09/08/2018 9:35 AM EDT Screening for breast cancer POCT OCCULT BLOOD STOOL Routine 07/29/2018 10:27 AM EDT Screening for colon cancer PAP IG, RFX HPV ASCU Routine 07/29/2018 9:46 AM EDT POCT INFLUENZA, A B Routine 05/23/2018 9 :47 AM EST Cough PAP IG (IMAGE GUIDED) Routine 12/24/2017 9:50 AM EDT LABS (OUTSIDE) Routine 12/18/2017 MAMMO SCREENING BILATERAL Routine 08/29/2017 9:09 AM EDT Encounter for screening mammogram for malignant neoplasm of breast POCT OCCULT BLOOD STOOL Routine 06/16/2017 2:51 PM EDT Colon cancer screening HPV, HIGH-RISK Routine 06/16/2017 1:14 PM EDT PAP IG, RFX HPV ASCU Routine 06/16/2017 1:14 PM EDT BONE DENSITY AXIAL (HIP, PELVIS, SPINE) Routine 07/23/2016 1:54 PM EDT Osteopenia MAMMOGRAPHY (OUTSIDE) Routine 07/23/2016 Results * XR HAND LEFT 3+ VIEWS (10/13/2024 10:56 AM EDT) Anatomical Region Laterality Modality hand, MSK Left Digital Radiogra phy 10/13/2024 10:5 5 AM EDT Impressions 10/13/2024 11:23 AM EDT FINDINGS/IMPRESSION: Well-corticated ossicle overlies the region of the distal ulna, favored to be remote. No acute fracture, suspicious process or malalignment. Specifically, no acute process involving the reported history involving the first digit. Soft tissues relatively symmetric without obvious focal swelling. No soft tissue gas or radiopaque foreign body. Narrative 10/13/2024 11:23 AM EDT EXAM: XR HAND LEFT 3+ VIEWS HISTORY: left hand pain COMPARISON: None. TECHNIQUE: Radiograph of the left hand, 3 images. Procedure Note Raoul Martínez MD - 10/13/2024 EXAM: XR HAND LEFT 3+ VIEWS HISTORY: left hand pain COMPARISON: None. TECHNIQUE: Radiograph of the left hand, 3 images. IMPRESSION FINDINGS/IMPRESSION: Well-corticated ossicle overlies the region of the distal ulna, favored maria r remote. No acute fracture, suspicious process or malalignment. Specifically, noacute process involving the reported history involving the first digit. Soft tissues relatively symmetric without obvious focal swelling. No soft tissue gas or radiopaque foreign body. us Ketan Zhou [facility] ORDERAB LES Final Result * TSH W/FT4 REFLEX (05/11/2024 9:55 AM EST) Only the most recent of3 resultswithin the time period is included. TSH, Reflex FT4 1.810 0.465 - 4.680 uIU/ML [address] Blood 05/11/2024 9:55 AM EST 05/11/2024 9:56 AM EST Cheryl Ordonez ADJUSTER [facility]LECTRICAL [facility] END[facility]CR[facility]OLOG[facility] Final Re sult [address] [address] * (ABNORMAL) CBC, EDIF, PLATELET (05/11/2024 9:55 AM EST) Only the most recent of10 resultswithin the time period is included. WBC (WHITE BLOOD COUNT) 6.4 3.6 - 11.0 10*3/uL [address] RBC 4.67 4.0 - 5.4 10*6/uL [address] HEMOGLOBIN (HGB) 13.8 12.0 - 16.0 G/DL [address] HEMATOCRIT (HCT) 41.2 36.0 - 48.0 % [address] Mean Cell Volume 88.3 80.0 - 100.[address] Mean Cell HGB 29.7 26.0 - 35.[address] Mean Cell HGB Concentration 33.6 27.0 - 37.0 G/DL [address] RBC Distribution 14.5 11.5 - 14.5 % [address] PLATELET COUNT 406(H) 130 - 400 10*3/uL [address] Mean Platelet Volume 7.2(L) 7.4 - 11.[address] DIFFERENTIAL TYPE AUTO DIFF % ON [address] NEUTROPHILS 58.0 37.0 - 75.0 % [address] LYMPHOCYTE 31.3 20.0 - 55.0 % [address] MONOCYTE % 8.4 0.0 - 10.0 % [address] EOSINOPHIL % 1.6 0.0 - 11.0 % [address] BASOPHIL % 0.7 0.0 - 2.0 % [address] Absolute Neutrophil Count 3.7 1.4 - 6.5 10*3/uL [address] LYMPHOCYTES, ABSOLUTE 2.0 1.2 - 3.4 10*3/uL [address] MONOCYTES, ABSOLUTE 0.5 0.0 - 0.7 10*3/uL [address] ABSOLUTE EOSINOPHIL COUNT 0.1 0.0 - 0.7 10*3/uL [address] ABSOLUTE BASOPHIL COUNT 0.0 0.0 - 0.2 10*3/uL [address] Blood 05/11/2024 9:55 AM EST 05/11/2024 9:56 AM EST Cheryl Ordonez ADJUSTER ELECTRICAL CONTACTS-DIVISION SUPERVISOR HEMATOLOGY ORDERABLES Fi nal Result [address] [address] * (ABNORMAL) LIPID PANEL W CALCULATED LDL (05/11/2024 9:55 AM EST) Only the most recent of7 resultswithin the time period is included. CHOLESTEROL 313(H) 107 - 217 MG/DL [address] TRIGLYCERIDE 304(H) 0 - 150 MG/DL [address] HDL CHOLESTEROL 48 33 - 75 MG/DL [address] LDL CHOLESTEROL, CALCULATED 204(H) <100 MG/DL [address] VLDL Cholesterol, Calculated 61(H) 5 - 25 MG/DL [address] TCHOL/HDL RATIO, MANUAL ENTER 6.[address] Comment: RISK TOTAL/HDL RATIO MEN WOMEN 1/2 AVERAGE 3.43 3.27 AVERAGE 4.97 4.44 2X AVERAGE 9.55 7.05 3X AVERAGE 23.99 11.04 Blood 05/11/2024 9:55 AM EST 05/11/2024 9:56 AM EST Cheryl Ordonez ADJUSTER ELECTRICAL CONTACTS-DIVISION SUPERVISOR CHEMISTRY ORDERABLES Fin al Result [address] [place] [address] * (ABNORMAL) COMPREHENSIVE METABOLIC PANEL (05/11/2024 9:55 AM EST) Only the most recent of10 resultswithin the time period is included. Glucose 95 70 - 100 MG/DL [address] Comment: NORMAL <100 mg/dL PREDIABETES 101-126 mg/dL DIABETES 126 mg/dL or higher BUN 14 7 - 20 MG/DL [address] CREATININE SERUM 0.69(L) 0.70 - 1.20 MG/DL [address] SODIUM 138 137 - 145 MMOL/L [address] Potassium 4.4 3.5 - 5.1 MMOL/L [address] CHLORIDE 100 98 - 107 MMOL/L [address] Comment:Please note: Triglyc eride levels of 600mg/dL or higher may positively bias chloride results by approximately 2.1 mmol CALCIUM 9.2 8.4 - 10.2 MG/DL [address] PROTEIN, TOTAL 7.5 6.3 - 8.2 GM/DL [address] Albumin 4.4 3.5 - 5.0 G/dl [address] BILIRUBIN, TOTAL 0.7 0.2 - 1.3 MG/DL [address] AST 33 14 - 36 IU/L [address] ALKALINE PHOSPHATASE 65 38 - 126 IU/L [address] CARBON DIOXIDE (CO2) 25 22 - 30 MMOL/L [address] A/G Ratio 1.[address] ALT 18 <35 IU/L [address] ESTIMATED GFR, NON AMER 90 ml/min/1. 73sq.m [address] ESTIMATED GFR, 109 ml/min/1. 73sq.m [address] GFR COMMENT Average GFR for 60-69 years old = 85. [address] Comment: Chronic Kidney disease, GFR = <60. Kidney failure, GFR = <15. The GFR estimate is not adjusted for extreme body surface area or acute process, nor has it been validated for women or ethnic groups other than and . Blood 05/11/2024 9:55 AM EST 05/11/2024 9:56 AM EST us Cheryl Ordonez ADJUSTER ELECTRICAL CONTACTS-DIVISION SUPERVISOR CHEMISTRY ORDERABLES Fin al Result [address] [address] * POCT RAPID STREP A (05/06/2024 4:32 PM EST) [facility] POCT RAPID STREP A positive (+/-) Throat 05/06/2024 4:32 PM EST Debbie Posada, OPTICAL INSTRUMENT INSPECTOR - 05/06/2024 4:32 PM EST Internal Controls are positive Marielena DOLL POINT OF CARE TESTING Final Re sult * SARS-COV-2 RAPID ANTIGEN (CLINIC ONLY) (04/19/2024 1:02 PM EST) Only the most recent of3 resultswithin the time period is included. [facility] SARS-COV-2 Rapid Antigen NOT DETECTED NOT DETECTED [address] Comment: Negative results should be treated as presumptive and confirmation with a molecular assay, if necessary, for patient management, may be performed. Negative results do not rule out SARSCoV-2 infection and should not be used as the sole basis for treatment or patient management decisions, including infection control decisions. Negative results should be considered in the context of a patient's recent exposures, history and the presence of clinical signs and symptoms consistent with COVID- 19. NARRATIVE -1 This test was performed using lateral flow immunoassay. This test does not differentiate between SARS-CoV and SARS-CoV2. [address] Nares ANTERIOR NARES SWAB / Unknown 04/19/2024 1:02 PM EST 04/19/2024 1:17 PM EST Lars Bowman CNP MICROBIOLOGY - GENERAL SIM DAVIS Final Result [address] [address] * (ABNORMAL) POCT INFLUENZA, A B (04/19/2024 12:50 PM EST) Only the most recent of3 resultswithin the time period is included. [facility] POCT Influenza A Positive(A) Negative, Not Tested, Invalid, Not Detected POCT Influenza B Negative Negative, Not Tested, Invalid, Not Detected Nasal Swab 04/19/2024 12:5 0 PM EST Impressions Ghassan Ortiz, OPTICAL INSTRUMENT INSPECTOR - 04/19/2024 12:50 PM EST Internal controls are positive. Lars Bowman CNP POINT OF CARE TESTING Final Result * VITAMIN D (25-HYDROXY,TOTAL) (03/03/2024 11:48 AM EST) [facility] VITAMIN D 25 HYDROXY 56.4 NG/ML [address] Comment: DEFICIENT <20 NG/ML INSUFFICIENT 20-<30 NG/ML SUFFICIENT 30-100 NG/ML POTENTIAL TOXICITY >100 NG/ML Testing performed at [place], [place] [address] Blood 03/03/2024 11:4 8 AM EST 03/03/2024 12:15 PM EST Juju MEYER CHEMISTRY ORDERABLES Final Re sult [address] [address] * BONE DENSITY AXIAL (HIP, PELVIS, SPINE) (03/03/2024 10:44 AM EST) [facility] BSA 1.87 m2 Anatomical Region Laterality Modality hip, Pelvis, L-spine Ultrasound Impressions 03/03/2024 2:49 PM EST : (SEE PRINTED Cint PRODIGY REPORT IN SYNAPSE FOR COMPLETE BONE DENSITOMETRY REPORT) 1. Based on the measurements above, the Bone Density of AP spine is Severely Osteopenic. The Right Hip is Mildly Osteopenic. The Left Hip is Mildly Osteopenic. The Right Femoral Neck is Moderately Osteopenic. The Left Femoral Neck is Mildly Osteopenic. This puts the patient at Moderate risk for fracture. Note: T-Score is defined as the number of standard deviations from the young adult average. Negative values are less than average, positive values are greater than average. Narrative 03/03/2024 2:49 PM EST DEXA PROCEDURE REFERRING PHYSICIAN: Dr. Ortiz TECHNOLOGIST: Virgen Cates PROCEDURE DATE: 03/03/2024 TECHNIQUE: The bone mineral density was measured across the lumbar spine and bilateral hips utilizing a [employer] unit. INDICATIONS: Osteopenia of multiple sites PROCEDURE DETAILS: DEXA done. T-Scores - AP Spine -2.3 (-2.2 07/2016) 0.912 g/cm2 (0.921 07/2016) Lt. Hip -1.3 (-1.2 07/2016) 0.846 g/cm2 (0.855 07/2016) Lt. Femoral Neck -1.3 (-1.1 07/2016) 0.855 g/cm2 (0.882 07/2016) Rt. Hip -1.3 (-1.2 07/2016) 0.845 g/cm2 (0.854 07/2016) Rt. Femoral Neck -1.5 (-1.3 07/2016) 0.824 g/cm2 (0.854 07/2016) FINAL Darion Ortiz MD DEXA ORDERABLES Final Result * MOBILE CARDIAC TELEMETRY (12/18/2023 11:59 PM EDT) 12/18/2023 11:5 9 PM EDT Dalton Linda ADJUSTER [employer]DIV[employer] SUPERVISOR CARDIAC SERVICES ORDER ARABELLA Final Result RADIOLOGY * MAMMO SCREENING WITH NAPOLEON BILATERAL (11/20/2023 8:34 AM EDT) Anatomical Region Laterality Modality breast Bilateral Mammography 11/20/2023 8:17 AM EDT Impressions 11/21/2023 10:42 AM EDT IMPRESSION: No evidence of malignant breast disease. Annual screening mammography is recommended. BI-RADS Category 2. Benign findings. Narrative 11/21/2023 10:42 AM EDT EXAM: MAMMO SCREENING WITH NAPOLEON BILATERAL HISTORY: SCREENING MAMMOGRAM. COMPARISON: 10/21/2022, 10/10/2021, 10/12/2020, 10/05/2019, and 09/08/2018. TECHNIQUE: Bilateral full-field digital MLO and CC mammographic views were obtained. CAD was applied. 3-D tomosynthesis was evaluated. FINDINGS: Scattered fibroglandular parenchymal densities are again seen diffusely throughout both breasts. No mass, area of architectural distortion, or cluster of suspicious microcalcifications is seen. Multiple benign calcifications are re-identified. us Juju Nova ADJUSTER [employer]DIV[employer] SUPERVISOR BREAST IMAGING Final Result * CONTINUOUS CARDIAC MONITORING STRIP (11/12/2023 2:00 AM EDT) 11/12/2023 2:00 AM EDT us Other Other ECG ORDERABLES Final Result RADIOLOGY * ECHOCARDIOGRAM STUDY DETAILS BILLING (11/11/2023 3:52 PM EDT) BSA 1.87 m2 UMOUT RV mid diam 2.45 cm UMOUT RV long diam 6.86 cm UMOUT RV Area systolic 7.72 cm2 UMOUT IVC ostium 1.41 cm UMOUT LVIDS 3.50 cm UMOUT LV EDV SP 2CH 47 mL UMOUT LV ESV SP 2CH 17 mL UMOUT EF SP 2CH 64 UMOUT LV EDV SP 4CH 40 mL UMOUT EF SP 4CH 65 UMOUT LV ESV SP 4CH 14 mL UMOUT BP EF 64 % UMOUT LV EDV BP 45 mL UMOUT OSU ECHO LV BP DIASTOLIC VOLUME INDEX 24.06 mL/m2 UMOUT LV ESV BP 16 mL UMOUT OSU ECHO LV BIPLANE SYSTOLIC VOLUME INDEX 8.56 mL/m2 UMOUT LV stroke volume BP (ml) 29 mL UMOUT LV stroke volume index BP 15.51 mL/m2 UMOUT MV pk E holley 0.57 m/s UMOUT E wave decelartion time 211.00 msec UMOUT MV pk A holley 0.93 m/s UMOUT E/A ratio 0.61 UMOUT E/e' septal ratio 7.86 UMOUT e' septal pk holley 0.0725 m/s UMOUT E/e' lateral ratio 5.99 UMOUT e' lateral pk holley 0.0951 m/s UMOUT Avg E/e' ratio 6.93 UMOUT Avg e' pk holley 0.08 m/s UMOUT LA ESV BP (MOD) index 9 mL/m2 UMOUT RV basal diam 3.12 cm UMOUT TAPSE 1.74 cm UMOUT RVOT peak VTI 16.35 cm UMOUT RV S' 14.21 cm/s UMOUT RVOT peak holley 0.82 m/s UMOUT RVOT peak gradient 3 mmHg UMOUT LA ESV SP 4CH (MOD) 17 mL UMOUT LA ESV SP 2CH (MOD) 16 mL UMOUT LA ESV BP (MOD) 17 mL UMOUT Right atrium volume 4 chamber method of disks 30 mL UMOUT RA vol index 4CH (MOD) 16.04 mL/m2 UMOUT RA area 4CH (MOD) 12.96 cm2 UMOUT LVOT diameter 1.96 cm UMOUT LVOT area 3.02 cm2 UMOUT PV mean gradient 2 mmHg UMOUT OSU RVOT VTI RATIO 1.00 UMOUT PV PK HOLLEY 0.95 m/s UMOUT PV VTI 16.42 cm UMOUT PV peak gradient 4 mmHg UMOUT Sinus 3.39 cm UMOUT STJ 2.93 cm UMOUT Ascending aorta 3.82 cm UMOUT Ao SOV index 1.81 cm/m2 UMOUT Ao STJ index 1.57 cm/m2 UMOUT Ao ASC index 2.04 cm/m2 UMOUT e' lateral pk holley 0.10 m/s UMOUT e' septal pk holley 0.07 m/s UMOUT LVIDD 5.04 cm UMOUT IVS 0.50 cm UMOUT PW 0.54 cm UMOUT LV RWT 0.21 UMOUT LV mass 81.08 g UMOUT LV Mass Index 43.4 g/m2 UMOUT RV Area diastolic 15.98 cm2 UMOUT RV Fractional area change 51.7 % UMOUT FS 31 28 - 44 % UMOUT EST RAP 3.00 mmHg UMOUT Anatomical Region Laterality Modality Ultrasound Narrative 11/11/2023 4:09 PM EDT The left ventricular chamber size and systolic function are normal. LVEF 60-65%. The right ventricular chamber size and systolic function are normal. There is no hemodynamically significant valvular disease. No right to left shunt with agitated saline. Left Ventricle Chamber size is normal. Normal wall thickness. Normal global systolic function. Regional wall motion is normal. Ejection fraction is normal (60 - 65%). Diastolic function is normal. Right Ventricle Chamber size is normal. Systolic function is normal. Left Atrium Chamber size is normal. Right Atrium Chamber size is normal. IVC/SVC The inferior vena cava is normal in size. The inferior vena cava structure has a diameter <21 mm and decreases >50% during inspiration. Mitral Valve Normal appearing leaflets. Leaflet mobility is normal. No regurgitation. No valve stenosis. Tricuspid Valve Normal leaflets. Leaflet mobility is normal. No regurgitation. No stenosis. Pulmonary artery systolic pressure (PASP) is unable to be estimated. Aortic Valve Trileaflet valve. Leaflet mobility is normal. Trace regurgitation. No stenosis. Pulmonic Valve Normal structure. No regurgitation. No stenosis. Pericardium Appears normal. No pericardial effusion. Septum The atrial septum is normal. No evidence of patent foramen ovale determined by color flow and saline contrast. Aorta No dilation to extent seen. Study Details A complete echocardiography study (including color flow Doppler, spectral Doppler, M-mode and agitated saline contrast) was performed. Imaging system used: [employer]. Indications Indications for study: stroke/tia. Wall Scoring Score Index: 1.00 The left ventricular wall motion is normal. us César Freeman MD ECHO ORDERABLES Final Resul t * MRI BRAIN WITHOUT CONTRAST (11/11/2023 1:21 PM EDT) Anatomical Region Laterality Modality Head Magnetic Resonan ce 11/11/2023 1:42 PM EDT Impressions 11/11/2023 6:06 PM EDT IMPRESSION: No acute intracranial abnormality or mass effect. Narrative 11/11/2023 6:06 PM EDT EXAM: MRI BRAIN WITHOUT CONTRAST, 11/11/2023 13:21 PM CLINICAL INDICATIONS: TIA protocol. Age: 63 years Gender: Female COMPARISON: CT head November 11, 2023 at 8:12 AM. TECHNIQUE: A series of multisequence, multiplanar images of the brain are obtained without intravenous gadolinium-based contrast using standard protocol. FINDINGS: Intracranial: Scattered foci of T2 prolongation in the periventricular and deep white matter are nonspecific but compatible with chronic microvascular changes. No evidence of edema, mass effect, or mass lesion. No evidence of hemorrhage. No diffusion restriction or other evidence of acute infarct is identified. Sellar and parasellar structures are unremarkable on this unenhanced study. No abnormal epidural or subdural collection. No significant ventriculomegaly. Skull and Extracranial: Minimal mucosal thickening is present in several paranasal sinuses. Skull and extracranial structures are otherwise unremarkable. Procedure Note Marni Arenas MD, PhD - 11/11/2023 EXAM: MRI BRAIN WITHOUT CONTRAST, 11/11/2023 13:21 PM CLINICAL INDICATIONS: TIA protocol. Age: 63 years Gender: Female COMPARISON: CT head November 11, 2023 at 8:12 AM. TECHNIQUE: A series of multisequence, multiplanar images of the brainare obtained without intravenous gadolinium-based contrast using standard protocol. FINDINGS: Intracranial: Scattered foci of T2 prolongation in the periventricular and deep whitematter are nonspecific but compatible with chronic microvascular changes. No evidence of edema, mass effect, or mass lesion. No evidence of hemorrhage.No diffusion restriction or other evidence of acute infarct is identified. Sellar and parasellar structures are unremarkable on this unenhancedstudy. No abnormal epidural or subdural collection. No significant ventriculomegaly. Skull and Extracranial: Minimal mucosal thickening is present in several paranasal sinuses. Skulland extracranial structures are otherwise unremarkable. IMPRESSION IMPRESSION: No acute intracranial abnormality or mass effect. us César Freeman MD MR ORDERABLES Final Resul t * URINE DRUG SCREEN 10 (11/11/2023 11:56 AM EDT) Amphetamine/Methamp hetamine None Detected Cutoff: 500 ng/mL 11/11/2023 12:25 PM EDT [facility] Barbiturates None Detected Cutoff: 200 ng/mL 11/11/2023 12:25 PM EDT [facility] Benzodiazepines None Detected Cutoff: 200 ng/mL 11/11/2023 12:25 PM EDT [facility] Buprenorphine None Detected Cutoff: 5 ng/mL 11/11/2023 12:25 PM EDT [facility] Cannabinoids (Marijuana) None Detected Cutoff: 50 ng/mL 11/11/2023 12:25 PM EDT [facility] Cocaine None Detected Cutoff: 150 ng/mL 11/11/2023 12:25 PM EDT [facility] Fentanyl None Detected Cutoff: 1 ng/mL 11/11/2023 12:25 PM EDT [facility] Methadone None Detected Cutoff: 300 ng/mL 11/11/2023 12:25 PM EDT [facility] Opiates None Detected Cutoff: 300 ng/mL 11/11/2023 12:25 PM EDT [facility] Oxycodone None Detected Cutoff: 100 ng/mL 11/11/2023 12:25 PM EDT [facility] Urine 11/11/2023 11:5 6 AM EDT 11/11/2023 12:06 PM EDT Narrative [facility] - 11/11/2023 12:25 PM EDT For medical purposes only. Positive results are unconfirmed unless otherwise noted. César Freeman MD DRUG/TOXICOLOGY Final Resul t [facility] [address] [place] [address] * MONITOR REPORTS (SCANNED) (11/11/2023 10:35 AM EDT) Historical Provider ECG ORDERABLES Final Result * CONTINUOUS CARDIAC MONITORING STRIP (11/11/2023 10:35 AM EDT) 11/11/2023 10:3 5 AM EDT Other Other ECG ORDERABLES Final Result RADIOLOGY * CARDIAC RHYTHM (SCANNED) (11/11/2023 10:34 AM EDT) Historical Provider ECG ORDERABLES Final Result * (ABNORMAL) CBC AND ELECTRONIC DIFF (11/11/2023 8:39 AM EDT) Pathologist [facility] WBC Count 6.59 3.99 - 11.19 K/uL 11/11/2023 9:53 AM EDT [facility] RBC Count 4.53 3.91 - 5.04 M/uL 11/11/2023 9:53 AM EDT [facility] Hemoglobin 13.6 11.4 - 15.2 g/dL 11/11/2023 9:53 AM EDT [facility] Hematocrit 42.0 34.9 - 44.3 % 11/11/2023 9:53 AM EDT [facility] Mean Cell Volume 92.7 79.6 - 97.7 fL 11/11/2023 9:53 AM EDT [facility] Mean Cell Hgb 30.0 25.9 - 33.9 pg 11/11/2023 9:53 AM EDT [facility] Mean Cell Hgb Conc 32.4 31.4 - 35.9 g/dL 11/11/2023 9:53 AM EDT [facility] RBC Distribution 13.4 10.8 - 14.9 % 11/11/2023 9:53 AM EDT [facility] Platelet Count 253 150 - 393 K/uL 11/11/2023 9:53 AM EDT [facility] Mean Platelet Volume 9.5 8.5 - 12.2 fL 11/11/2023 9:53 AM EDT [facility] DIFF STATUS Electronic Differential 11/11/2023 9:53 AM EDT [facility] Segs + Bands Auto 75.2 % 11/11/2023 9:53 AM EDT [facility] Immature Grans % 1.5 % 11/11/2023 9:53 AM EDT [facility] Lymphocyte % Auto 16.5 % 11/11/2023 9:53 AM EDT [facility] Monocyte % Auto 5.2 % 9:53 AM EDT [facility] Eosinophil % Auto 0.8 % 11/11/2023 9:53 AM EDT [facility] Basophil % Auto 0.8 % 9:53 AM EDT [facility] Nucleated RBC 0.0 <=0.2 /100 WBC 11/11/2023 9:53 AM EDT [facility] Segs + Bands,Absolute Auto 4.96 1.64 - 7.28 K/uL 11/11/2023 9:53 AM EDT [facility] Immature Grans Absolute 0.10(H) <=0.08 K/uL 11/11/2023 9:53 AM EDT [facility] Abs Lymph Auto 1.09(L) 1.16 - 3.51 K/uL 11/11/2023 9:53 AM EDT [facility] Abs [place] Auto 0.34 0.22 - 0.87 K/uL 11/11/2023 9:53 AM EDT [facility] Abs Eos Auto 0.05 0.00 - 0.42 K/uL 11/11/2023 9:53 AM EDT [facility] Abs Baso Auto 0.05 0.00 - 0.15 K/uL 11/11/2023 9:53 AM EDT [facility] Blood Venipuncture / Unknown 11/11/2023 8:39 AM EDT 11/11/2023 8:50 AM EDT César Freeman MD HEMATOLOGY ORDERABLES Final Result Performing Organization Address [facility] de Phone Number [facility] [address] [place] [address] * LAVENDER TOP TUBE (11/11/2023 8:39 AM EDT) Blood Venipuncture / Unknown 11/11/2023 8:39 AM EDT 11/11/2023 8:50 AM EDT César Freeman MD HEMATOLOGY ORDERABLES Final Result Performing Organization Address [facility] Co de Phone Number [facility] [address] [place] [address] * MINT GREEN TOP TUBE (11/11/2023 8:39 AM EDT) Blood Venipuncture / Unknown 11/11/2023 8:39 AM EDT 11/11/2023 8:50 AM EDT César Freeman MD CHEMISTRY ORDERABLES Final Result Performing Organization Address [facility] Co de Phone Number [facility] [address] [place] [address] * GOLD TOP TUBE (11/11/2023 8:39 AM EDT) Blood Venipuncture / Unknown 11/11/2023 8:39 AM EDT 11/11/2023 8:50 AM EDT César Fereman MD CHEMISTRY ORDERABLES Final Result Performing Organization Address [facility] de Phone Number [facility] [address] [place] [address] * HIGH SENSITIVITY TROPONIN I - SINGLE ORDER (11/11/2023 8:39 AM EDT) hs-Troponin I <3 <34 ng/L 11/11/2023 9:11 AM EDT [facility] Blood Venipuncture / Unknown 11/11/2023 8:39 AM EDT 11/11/2023 8:[address] [facility] - 11/11/2023 9:11 AM EDT Acute Coronary Syndrome (ACS): Initial Evaluation and Management: [email or web address] César Freeman MD CHEMISTRY ORDERABLES Final Result Performing Organization Address [facility] Co de Phone Number [facility] [address] [place] [address] * PTINR-STROKE (11/11/2023 8:39 AM EDT) PT 13.4 11.9 - 14.2 sec 11/11/2023 8:52 AM EDT [facility] INR 1.0 0.9 - 1.1 11/11/2023 8:52 AM EDT [facility] Blood Venipuncture / Unknown 11/11/2023 8:39 AM EDT 11/11/2023 8:42 AM EDT César Freeman MD COAGULATION Final Resul t Performing Organization Address [facility]/ZIP Co de Phone Number [facility] [address] [place] [address] * (ABNORMAL) CHM 7 - ED (11/11/2023 8:39 AM EDT) Sodium 132(L) 135 - 145 mmol/L 11/11/2023 9:24 AM EDT [facility] Potassium 4.2 3.5 - 5.0 mmol/L 11/11/2023 9:24 AM EDT [facility] Chloride 101 98 - 108 mmol/L 11/11/2023 9:24 AM EDT [facility] CO2 23 21 - 31 mmol/L 11/11/2023 9:24 AM EDT [facility] Glucose 106(H) 70 - 99 mg/dL 11/11/2023 9:24 AM EDT [facility] BUN 15 7 - 25 mg/dL 11/11/2023 9:24 AM EDT [facility] Creatinine 0.75 0.50 - 1.20 mg/dL 11/11/2023 9:24 AM EDT [facility] Bun/Crea Ratio 20 11/11/2023 9:24 AM EDT [facility] Osmolality (Calculated) 279 278 - 305 mOsm/kg 11/11/2023 9:24 AM EDT [facility] Anion Gap 12 7 - 17 mmol/L 11/11/2023 9:24 AM EDT [facility] eGFR, CKD-EPI, Female 86 >=60 mL/min/1.7 3m2 11/11/2023 9:24 AM EDT [facility] Comment:Reported eGFR is bas ed on the CKD-EPI 2020 equation using creatinine, age, and sex. Blood Venipuncture / Unknown 11/11/2023 8:39 AM EDT 11/11/2023 8:50 AM EDT César Freeman MD CHEMISTRY ORDERABLES Final Result Performing Organization Address [facility]/ZIP Co de Phone Number [facility] [address] [place] [address] * PTT (11/11/2023 8:39 AM EDT) PTT 27.9 24.0 - 34.3 sec 11/11/2023 8:53 AM EDT [facility] Blood Venipuncture / Unknown 11/11/2023 8:39 AM EDT 11/11/2023 8:42 AM EDT César Freeman MD COAGULATION Final Resul t Performing Organization Address [facility] Co de Phone Number [facility] [address] [address] * HEMOGLOBIN A1C (11/11/2023 8:39 AM EDT) Pathologist [facility] Hemoglobin A1C HPLC 5.4 4.7 - 5.6 % 11/11/2023 12:07 PM EDT [facility] Estimated Average Glucose 108 mg/dL 11/11/2023 12:07 PM EDT [facility] Blood Venipuncture / Unknown 11/11/2023 8:39 AM EDT 11/11/2023 8:50 AM EDT César Freeman MD HEMATOLOGY ORDERABLES Final Result Performing Organization Address [facility] de Phone Number [facility] [address] [address] * (ABNORMAL) HEPATIC FUNCTION PANEL (11/11/2023 8:39 AM EDT) Pathologist [facility] Albumin 4.0 3.5 - 5.0 g/dL 11/11/2023 9:24 AM EDT [facility] Bilirubin Direct 0.1 <0.3 mg/dL 11/11/2023 9:24 AM EDT [facility] Bilirubin Total 0.4 <1.5 mg/dL 11/11/2023 9:24 AM EDT [facility] ALP 62 32 - 126 U/L 11/11/2023 9:24 AM EDT [facility] ALT 12 9 - 48 U/L 11/11/2023 9:24 AM EDT [facility] AST 19 10 - 39 U/L 11/11/2023 9:24 AM EDT [facility] Total Protein 6.2(L) 6.4 - 8.3 g/dL 11/11/2023 9:24 AM EDT [facility] Blood Venipuncture / Unknown 11/11/2023 8:39 AM EDT 11/11/2023 8:50 AM EDT César Freeman MD CHEMISTRY ORDERABLES Final Result Performing Organization Address [facility] Co de Phone Number [facility] [address] [place] [address] * ECG (11/11/2023 8:31 AM EDT) 11/11/2023 8:31 AM EDT 11/19/2023 9:52 PM EDT César Freeman MD ECG ORDERABLES Final Resul t Performing Organization Address [facility] Co de Phone Number RADIOLOGY * CT ANGIO BRAIN/NECK (11/11/2023 8:30 AM EDT) Anatomical Region Laterality Modality Head, vascular Computed Tomogra phy 11/11/2023 8:42 AM EDT Impressions 11/11/2023 8:54 AM EDT IMPRESSION: 1. No significant stenosis of the carotid or vertebral arteries in the neck. 2. No proximal intracranial artery occlusion or severe stenosis. Narrative 11/11/2023 8:54 AM EDT EXAM: CT ANGIO BRAIN/NECK, 11/11/2023 08:30 AM COMPARISON: No priors available for comparison. CLINICAL INDICATIONS: 63 years Female Suspected Stroke RELEVANT CLINICAL HISTORY: TECHNIQUE: A series of transaxial multislice computerized tomographic images are obtained with helical technique from top of aortic arch to vertex following bolus intravenous administration of nonionic contrast. Axial thin section source images, as well as sagittal and coronal thin section reformats, were provided at the scanner. Additional multiplanar and 3D reconstructions were provided. CONTRAST: iohexol (OMNIPAQUE) 350 MG/ML injection 1-171 mL; Route of Administration: Intravenous; Dose: 100 mL. FINDINGS: CT ANGIOGRAM NECK: AORTIC ARCH: Conventional anatomic origin of the great vessels. No significant stenosis. RIGHT CAROTID ARTERY: Common carotid artery is patent and normal in caliber. Internal carotid artery origin at the bifurcation is patent and normal in caliber. More distal cervical segments of the internal carotid artery are patent and normal in caliber. LEFT CAROTID ARTERY: Common carotid artery is patent and normal in caliber. Internal carotid artery origin at the bifurcation is patent and normal in caliber. More distal cervical segments of the internal carotid artery are patent and normal in caliber. RIGHT VERTEBRAL ARTERY: Origin is patent. More distal cervical segments are patent and normal in caliber. LEFT VERTEBRAL ARTERY: Origin is patent. More distal cervical segments are patent and normal in caliber. OTHER: No dissection or pseudoaneurysm. CT ANGIOGRAM HEAD: INTERNAL CAROTID ARTERIES: Patent and normal in caliber. ANTERIOR CEREBRAL ARTERIES: Patent and normal in caliber. MIDDLE CEREBRAL ARTERIES: Patent and normal in caliber. POSTERIOR CEREBRAL ARTERIES: Patent and normal in caliber. VERTEBRAL ARTERIES: Patent and normal in caliber. BASILAR ARTERY: Patent. No significant stenosis. OTHER: No AVM. There is infundibular origin of the left superior cerebellar artery, without discrete saccular aneurysm. 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 ADDITIONAL FINDINGS: No major incidental findings. Procedure Note Alexander Ramirez MD - 11/11/2023 EXAM: CT ANGIO BRAIN/NECK, 11/11/2023 08:30 AM COMPARISON: No priors available for comparison. CLINICAL INDICATIONS: 63 years Female Suspected Stroke RELEVANT CLINICAL HISTORY: TECHNIQUE: A series of transaxial multislice computerized tomographicimages are obtained with helical technique from top of aortic arch to vertex following bolus intravenous administration of nonionic contrast. Axialthin section source images, as well as sagittal and coronal thin sectionreformats, were provided at the scanner. Additional multiplanar and 3Dreconstructions were provided. CONTRAST: iohexol (OMNIPAQUE) 350 MG/ML injection 1-171 mL; Route ofAdministration: Intravenous; Dose: 100 mL. FINDINGS: CT ANGIOGRAM NECK: AORTIC ARCH: Conventional anatomic origin of the great vessels. Nosignificant stenosis. RIGHT CAROTID ARTERY: Common carotid artery is patent and normal incaliber. Internal carotid artery origin at the bifurcation is patent and normalin caliber. More distal cervical segments of the internal carotid arteryare patent and normal in caliber. LEFT CAROTID ARTERY: Common carotid artery is patent and normal incaliber. Internal carotid artery origin at the bifurcation is patent and normalin caliber. More distal cervical segments of the internal carotid arteryare patent and normal in caliber. RIGHT VERTEBRAL ARTERY: Origin is patent. More distal cervical segmentsare patent and normal in caliber. LEFT VERTEBRAL ARTERY: Origin is patent. More distal cervical segmentsare patent and normal in caliber. OTHER: No dissection or pseudoaneurysm. CT ANGIOGRAM HEAD: INTERNAL CAROTID ARTERIES: Patent and normal in caliber. ANTERIOR CEREBRAL ARTERIES: Patent and normal in caliber. MIDDLE CEREBRAL ARTERIES: Patent and normal in caliber. POSTERIOR CEREBRAL ARTERIES: Patent and normal in caliber. VERTEBRAL ARTERIES: Patent and normal in caliber. BASILAR ARTERY: Patent. No significant stenosis. OTHER: No AVM. There is infundibular origin of the left superiorcerebellar artery, without discrete saccular aneurysm. There is duplicated rightsuperior cerebellar artery. ADDITIONAL FINDINGS: No major incidental findings. IMPRESSION IMPRESSION: 1. No significant stenosis of the carotid or vertebral arteries in theneck. 2. No proximal intracranial artery occlusion or severe stenosis. César Freeman MD CT ORDERABLES Final Resul t * CT CEREBRAL PERFUSION ANALYSIS (11/11/2023 8:29 AM EDT) Anatomical Region Laterality Modality Head, vascular Computed Tomogra phy 11/11/2023 8:40 AM EDT Impressions 11/11/2023 8:42 AM EDT IMPRESSION: CT perfusion examination is within normal limits Narrative 11/11/2023 8:42 AM EDT EXAM: CT CEREBRAL PERFUSION ANALYSIS, 11/11/2023 08:29 AM COMPARISON: No priors available for comparison. CLINICAL INDICATIONS: 63 years Female Suspected Stroke RELEVANT CLINICAL HISTORY: TECHNIQUE: A series of axial multislice computerized tomographic images of the brain are obtained following rapid bolus administration of contrast. FINDINGS: Examination is technically adequate. Of note, the coverage this exam did not include the vertex of the head, but did include the majority of the posterior fossa. Viz.ai automated software assessment: Estimated infarct core (CBF<30%): 0 mL. Estimated penumbra (perfusion mismatch): 0 mL. Tmax >6s: 0 mL. Additional, notable findings on the syngo.via perfusion maps: None. Procedure Note Alexander Ramirez MD - 11/11/2023 EXAM: CT CEREBRAL PERFUSION ANALYSIS, 11/11/2023 08:29 AM COMPARISON: No priors available for comparison. CLINICAL INDICATIONS: 63 years Female Suspected Stroke RELEVANT CLINICAL HISTORY: TECHNIQUE: A series of axial multislice computerized tomographic images ofthe brain are obtained following rapid bolus administration of contrast. FINDINGS: Examination is technically adequate. Of note, the coverage this exam didnot include the vertex of the head, but did include the majority of theposterior fossa. Viz[employer]ai automated software assessment: Estimated infarct core (CBF<30%): 0 mL. Estimated penumbra (perfusion mismatch): 0 mL. Tmax >6s: 0 mL. Additional, notable findings on the syngo.via perfusion maps: None. IMPRESSION IMPRESSION: CT perfusion examination is within normal limits César Freeman MD CT ORDERABLES Final Resul t * CT STROKE HEAD-STROKE ALERT ONLY (11/11/2023 8:14 AM EDT) Anatomical Region Laterality Modality Head Computed Tomogra phy 11/11/2023 8:16 AM EDT Impressions 11/11/2023 8:40 AM EDT IMPRESSION: No acute hemorrhage, or CT signs of acute large territory infarction. Findings were discussed with the stroke team at 8:19 AM on November 11, 2023. Narrative 11/11/2023 8:40 AM EDT EXAM: CT STROKE HEAD-STROKE ALERT ONLY, 11/11/2023 8:14 AM COMPARISON: No priors available for comparison. CLINICAL INDICATIONS: 63 years Female Suspected Stroke; Suspected Stroke RELEVANT CLINICAL HISTORY: TECHNIQUE: A series of transaxial computerized tomographic images are obtained from base of skull to vertex without intravenous contrast. Axial whole-head and thin section posterior fossa slices are provided. Dual-energy postprocessing was performed. Reformats: Sagittal and coronal. FINDINGS: Iodinated contrast is present in the vascular system from a previous contrast-enhanced study in outside facility. Smith-white matter differentiation is preserved. No acute large territory infarction is seen. No acute intracranial hemorrhage is seen. No significant mass effect or midline shift. Ventricles are normal in size and configuration for patient age. Skull appears intact. Visualized orbits appear normal. Visualized paranasal sinuses are clear. Procedure Note Alexander Ramirez MD - 11/11/2023 EXAM: CT STROKE HEAD-STROKE ALERT ONLY, 11/11/2023 8:14 AM COMPARISON: No priors available for comparison. CLINICAL INDICATIONS: 63 years Female Suspected Stroke; Suspected Stroke RELEVANT CLINICAL HISTORY: TECHNIQUE: A series of transaxial computerized tomographic images areobtained from base of skull to vertex without intravenous contrast. Axialwhole-head and thin section posterior fossa slices are provided. Dual-energy postprocessing was performed. Reformats: Sagittal and coronal. FINDINGS: Iodinated contrast is present in the vascular system from a previous contrast-enhanced study in outside facility. Smith-white matter differentiation is preserved. No acute large territory infarction is seen. No acute intracranial hemorrhage is seen. No significant mass effect or midline shift. Ventricles are normal in size and configuration for patient age. Skull appears intact. Visualized orbits appear normal. Visualizedparanasal sinuses are clear. IMPRESSION IMPRESSION: No acute hemorrhage, or CT signs of acute large territory infarction. Findings were discussed with the stroke team at 8:19 AM on October. us César Freeman MD CT ORDERABLES Final Resul t * CT ANGIO BRAIN/NECK (11/11/2023 7:07 AM EDT) Anatomical Region Laterality Modality Head, vascular Computed Tomogra phy 11/11/2023 6:36 AM EDT Impressions 11/11/2023 8:32 AM EDT IMPRESSION: No large vessel occlusion or high-grade stenosis in the head or neck. Narrative 11/11/2023 8:32 AM EDT EXAMINATION: CT ANGIO BRAIN/NECK HISTORY: left sided weakness COMPARISON: CT head 11/11/2023, CT head 04/20/2023 TECHNIQUE: CTA head and neck. 3-D post-processed images were created, reviewed and archived. 90 mL Omnipaque 350 RESULT: NECK: Soft tissues: Within normal limits. Spine: Alignment is normal. Mild spondylosis. Lungs: The imaged lungs are clear. CT ARTERIOGRAM: EXTRACRANIAL CIRCULATION: Aortic arch and branch vessels: Conventional 3-vessel arch branch anatomy. No significant stenosis in the proximal brachiocephalic vessels. Carotid Stenosis: Right Common: No significant stenosis. Right Internal Carotid Plaque: No significant plaque formation. Right Internal Carotid Stenosis (% by NASCET Criteria): 0% Left Common: No significant stenosis. Left Internal Carotid Plaque: No significant plaque formation. Left Internal Carotid Stenosis (% by NASCET Criteria): 0% Cervical Vertebral Arteries: Bilateral origins are obscured due to beam hardening artifact Patency: Bilateral Dominance: Left INTRACRANIAL CIRCULATION: Anterior circulation: Distal ICAs, ACAs and MCAs are normal in caliber. A1 segments are left dominant. Posterior circulation: Distal vertebral arteries ( ), basilar trunk and visual developer are normal in caliber. Proximal SCAs, AICAs and PICAs are patent. No vessel cut off, filling defect, significant focal narrowing, or evidence of aneurysm. Opacified dural venous sinuses and major deep and superficial draining veins are patent. President Celebrity Acquistion (topogram) images: No additional findings. Procedure Note Jaden Hankins MD - 11/11/2023 EXAMINATION: CT ANGIO BRAIN/NECK HISTORY: left sided weakness COMPARISON: CT head 11/11/2023, CT head 04/20/2023 TECHNIQUE: CTA head and neck. 3-D post-processed images were created,reviewed and archived. 90 mL Omnipaque 350 RESULT: NECK: Soft tissues: Within normal limits. Spine: Alignment is normal. Mild spondylosis. Lungs: The imaged lungs are clear. CT ARTERIOGRAM: EXTRACRANIAL CIRCULATION: Aortic arch and branch vessels: Conventional 3-vessel arch branch anatomy.No significant stenosis in the proximal brachiocephalic vessels. Carotid Stenosis: Right Common: No significant stenosis. Right Internal Carotid Plaque: No significant plaque formation. Right Internal Carotid Stenosis (% by NASCET Criteria): 0% Left Common: No significant stenosis. Left Internal Carotid Plaque: No significant plaque formation. Left Internal Carotid Stenosis (% by NASCET Criteria): 0% Cervical Vertebral Arteries: Bilateral origins are obscured due to beam hardening artifact Patency: Bilateral Dominance: Left INTRACRANIAL CIRCULATION: Anterior circulation: Distal ICAs, ACAs and MCAs are normal in caliber. A1 segments are left dominant. Posterior circulation: Distal vertebral arteries ( ), basilar trunk andPCAs are normal in caliber. Proximal SCAs, AICAs and PICAs are patent. No vessel cut off, filling defect, significant focal narrowing, orevidence of aneurysm. Opacified dural venous sinuses and major deep and superficial drainingveins are patent. President Celebrity Acquistion (topogram) images: No additional findings. IMPRESSION IMPRESSION: No large vessel occlusion or high-grade stenosis in the head or neck. Britta Covington MD CT ORDERABLES Final Result * (ABNORMAL) URINALYSIS, MACRO (11/11/2023 6:56 AM EDT) Only the most recent of2 resultswithin the time period is included. Color, Urine YELLOW YELLOW LAB, [facility] Appearance, Urine CLEAR CLEAR [facility], [facility] Specific [place], Urine 1.015 1.010 - 1.025 [facility], [facility] PH URINE 5.5 5.0 - 7.0 [facility], [facility] Urine Protein NEGATIVE NEGATIVE mg/dl [facility], [facility] Glucose, Urine NEGATIVE NEGATIVE mg/dl [facility], [facility] Ketones, Urine TRACE(A) NEGATIVE mg/dl [facility], [facility] BILIRUBIN, URINE NEGATIVE NEGATIVE [facility], [facility] BLOOD, URINE DIPSTICK NEGATIVE NEGATIVE LAB, [facility] Nitrites, Urine NEGATIVE NEGATIVE [facility], [facility] Urobilinogen, Urine 0.2 0.2 - 1.0 E.U./dL LAB, [facility] Leukocyte esterase, Urine SMALL(A) NEGATIVE [facility] 11/11/2023 6:56 AM EDT 11/11/2023 6:56 AM EDT Britta Covington MD BODY FLUIDS & STOOLS ORDERABLES Final Result LAB, [facility] [address] [place] [address] * (ABNORMAL) TOXICOLOGY DRUG SCREEN, URINE (11/11/2023 6:56 AM EDT) Pathologist [facility] CANNABINOIDS (MARIJUANA) NEGATIVE NEGATIVE NG/ML [address] Comment:<50 ng/ml CUTOFF Cocaine NEGATIVE NEGATIVE NG/ML [address] Comment:<150 ng/ml CUTOFF Methamphetamine NEGATIVE NEGATIVE NG/ML [address] Comment:<500 ng/ml CUTOFF Opiates POSITIVE(A) NEGATIVE NG/ML [address] Comment: <300 ng/ml CUTOFF *Unconfirmed Screening Result* Unconfirmed screening results are to be used only for medical treatment purposes. Amphetamine NEGATIVE NEGATIVE NG/ML [address] Comment:<500 ng/ml CUTOFF Benzodiazepines NEGATIVE NEGATIVE NG/ML [address] Comment:<200 ng/ml CUTOFF Tricyclic Antidepressants, Urine NEGATIVE NEGATIVE NG/ML [address] Comment:<1000 ng/ml CUTOFF Methadone NEGATIVE NEGATIVE NG/ML [address] Comment: Methadone Metabolite <100 ng/ml CUTOFF Barbiturate NEGATIVE NEGATIVE NG/ML [address] Comment:<200 ng/ml CUTOFF Oxycodone Confirmation NEGATIVE NEGATIVE NG/ML [address] Comment:<100 ng/ml CUTOFF Buprenorphine, Urine NEGATIVE NEGATIVE NG/ML [address] Comment:<12.5 ng/ml CUTOFF Fentanyl NEGATIVE NEGATIVE NG/ML [address] Comment: 1.0 ng/mL CUTOFF *Unconfirmed Screening Result* Unconfirmed screening results are to be used only for medical treatment purposes. This test has not been approved by the FDA. Testing performed at [place], [place] [address] Urine 11/11/2023 6:56 AM EDT 11/11/2023 6:56 AM EDT Britta Covington MD DRUG/TOXICOLOGY Final Result Performing Organization Address [facility] Co de Phone Number [address] [address] * (ABNORMAL) URINE MICROSCOPIC (11/11/2023 6:56 AM EDT) Only the most recent of2 resultswithin the time period is included. WBC, Urine 1 TO 5 NEGATIVE /HPF [facility], [facility] RBC, Urine NEGATIVE NEGATIVE /HPF [facility], [facility] Epithelial Cells UA 1 TO 5 /HPF [facility], [facility] Mucus NEGATIVE NEGATIVE LAB, [facility] Bacteria, Urine TRACE(A) NEGATIVE [facility], [facility] CRYSTALS, URINE NONE NONE [facility], [facility] CASTS, URINE NONE NONE /LPF [facility], [facility] COMMENT, URINE CULTURE CRITERIA NOT MET, NO CULTURE PERFORMED. [facility], [facility] 11/11/2023 6:56 AM EDT 11/11/2023 6:56 AM EDT Britta Covington MD BODY FLUIDS & STOOLS ORDERABLES Final Result Performing Organization Address City/[facility]/ZIP Co de Phone Number LAB, [facility] [place] [address] [place] [address] * PROTIME-INR (11/11/2023 6:15 AM EDT) PT 12.0 11.8 - 14.[address] INR 0.87 0.85 - 1.[address] Comment: 2.0-3.0 THERAPEUTIC RANGE 2.5-3.5 MECHANICAL VALVE RANGE Testing performed at [place], [place] [address] Blood 11/11/2023 6:15 AM EDT 11/11/2023 6:21 AM EDT us Britta Covington MD COAGULATION Final Result Performing Organization Address [facility]/ZIP Co de Phone Number [address] [address] * ALCOHOL (ETHANOL),BLOOD (11/11/2023 6:15 AM EDT) [facility] ALCOHOL, ETHYL, SERUM <10 0 - 10 MG/DL [address] Comment: INTOXICATION >80 MG/DL FATAL >400 MG/DL Testing performed at [place], [place] [address] Blood 11/11/2023 6:15 AM EDT 11/11/2023 6:21 AM EDT us Britta Covington MD DRUG/TOXICOLOGY Final Result Performing Organization Address [facility] Co de Phone Number [address] [address] * (ABNORMAL) GLUCOSE (POC DEVICE) (11/11/2023 6:11 AM EDT) [facility] GLUCOSE, POINT OF CARE 114(H) 70 - 100 MG/DL [facility] - [address] [place] - [place] [employer] [phone] [facility] - [address] [place] - [place] 11/11/2023 6:11 AM EDT 11/11/2023 7:47 AM EDT us Britta Covington MD POINT OF CARE TESTING Final Res ult Performing Organization Address [facility] Co de Phone Number [facility] - [address] - [place] [address] [place] [place] [phone] * CT STROKE HEAD-STROKE ALERT ONLY (11/11/2023 6:08 AM EDT) Anatomical Region Laterality Modality Head Computed Tomogra phy 11/11/2023 6:08 AM EDT Impressions 11/11/2023 6:18 AM EDT IMPRESSION: 1. No CT evidence of acute intracranial abnormalities. If symptoms persist, further assessment with MRI should be considered. Narrative 11/11/2023 6:18 AM EDT EXAMINATION: CT STROKE HEAD-STROKE ALERT ONLY HISTORY: r/o cva COMPARISON: CT head, 04/12/2023 TECHNIQUE: CT examination of the head without IV contrast. Dose reduction techniques were achieved by using automated exposure control and/or adjustment of mA and/or kV according to patient size and/or use of iterative reconstruction technique. FINDINGS: The ventricles, basal cisterns, and sulci are of normal size, shape, and configurations. No midline shift or mass effect. No evidence of acute transcortical infarctions. No space-occupying intracranial lesions. No intra-axial or extra-axial hemorrhages. Minimal mucosal thickening within the left maxillary sinus. The mastoid air cells are clear. Procedure Note Iris Min MD - 11/11/2023 EXAMINATION: CT STROKE HEAD-STROKE ALERT ONLY HISTORY: r/o cva COMPARISON: CT head, 04/12/2023 TECHNIQUE: CT examination of the head without IV contrast. Dose reduction techniques were achieved by using automated exposurecontrol and/or adjustment of mA and/or kV according to patient size and/or use of iterative reconstruction technique. FINDINGS: The ventricles, basal cisterns, and sulci are of normal size, shape, and configurations. No midline shift or mass effect. No evidence of acute transcortical infarctions. No space-occupying intracranial lesions. No intra-axial or extra-axial hemorrhages. Minimal mucosal thickening within the left maxillary sinus. The mastoidair cells are clear. IMPRESSION IMPRESSION: 1. No CT evidence of acute intracranial abnormalities. If symptomspersist, further assessment with MRI should be considered. Britta Covington MD CT ORDERABLES Final Result * POCT OCCULT BLOOD STOOL (10/15/2023 10:08 AM EDT) Only the most recent of6 resultswithin the time period is included. HEMMOCULT 1 - POINT OF CARE neg Stool 10/15/2023 10:0 8 AM EDT Juju Boogie Avtar ADJUSTER [employer]LECT[employer]TA[employer]-DIVISION SUPERVISOR POINT OF CARE TESTING Final R esult * [place] REMOVAL IMPACTED CERUMEN INSTRUMENTATION UNILAT (06/19/2023 2:20 PM EDT) Narrative James Page MD - 06/19/2023 2:20 PM EDT James Page MD 06/19/2023 2:20 PM Procedure: BILATERAL removal of impacted cerumen requiring instrumentation under binocular otomicroscopy (CPT 11681-97) Performed by: James Page MD Pre-procedure diagnosis: Impacted cerumen, hearing loss Post-procedure diagnosis: Same Description: After obtaining verbal informed consent, the patient was positioned seated upright. The binocular microscope and a disposable otic speculum were used to examine the bilateral ears. Impacted cerumen was removed with instrumentation including cerumen loops and alligator forceps, and suction. The findings following removal are as described below. The speculum was removed. The patient tolerated the procedure well and I performed the procedure myself. Findings: LEFT ear canal patent, tympanic membrane mildly retracted, pearly smith, and mobile without fluid or infection RIGHT ear canal patent, tympanic membrane mildly retracted, pearly smith, and mobile without fluid or infection James Page MD [place] - AUDITORY SYSTEM SERVICES Final Result * KENY MULTIPLEX SCRN WITH REFLEX (06/04/2023 9:59 AM EDT) KENY-DIRECT Negative [facility] Comment: Reference range: Negative PERFORMED AT [facility] Blood 06/04/2023 9:59 AM EDT 06/04/2023 10:00 AM EDT Karin Son ADJUSTER [employer]-DIVISION SUPERVISOR IMMUNOLOGY ORDERABLES F inal Result [facility] [address] [place] [address] * C REACTIVE PROTEIN (05/12/2023 2:19 PM EST) C-Reactive Protein <5.0 0 - 10 MG/L [address] Comment:Testing performed at [place], [place] [address] Blood 05/12/2023 2:19 PM EST 05/12/2023 2:25 PM EST Tin Lennon MD IMMUNOLOGY ORDERABLES [place] [address] * SEDIMENTATION RATE, AUTOMATED (05/12/2023 2:19 PM EST) Pathologist [facility] SEDIMENTATION RATE AUTOMATED 15 0 - 30 MM/HR [address] Comment:Testing performed at [place], [place] [address] Blood 05/12/2023 2:19 PM EST 05/12/2023 2:25 PM EST us Tin Lennon MD HEMATOLOGY ORDERABLES [place] [address] * MAGNESIUM (05/12/2023 2:19 PM EST) MAGNESIUM 2.3 1.6 - 2.3 MG/DL [address] Comment:Testing performed at [place], [place] [address] Blood 05/12/2023 2:19 PM EST 05/12/2023 2:25 PM EST Tin Lennon MD CHEMISTRY ORDERABLES Final Result [address] [address] * URINE CULTURE (05/12/2023 2:04 PM EST) SPECIMEN DESCRIPTION URINE CLEAN CATCH [address] RESULT-CULT NO PATHOGENS ISOLATED [address] Comment:Testing performed at [place], [place] [address] Report Status 05/14/[address] Comment:FINAL 05/12/2023 2:04 PM EST 05/12/2023 2:11 PM EST us Tin Lennon MD MICROBIOLOGY - GENERAL [facility] Final Result Performing Organization Address City/[facility]/ZIP Co de Phone Number [address] [address] * CARDIAC RHYTHM (SCANNED) (05/12/2023 11:27 AM EST) Historical Provider ECG ORDERABLES Final Result * ECG (SCANNED) (05/12/2023 11:23 AM EST) Historical Provider ECG ORDERABLES Final Result * CHOLESTEROL TOTAL (04/24/2023 8:14 AM EST) CHOLESTEROL 217 107 - 217 MG/DL [address] Blood 04/24/2023 8:14 AM EST 04/24/2023 8:15 AM EST us Karin Son ADJUSTER [employer]-DIVISION SUPERVISOR CHEMISTRY ORDERABLES Fi nal Result [address] [address] * CARDIAC RHYTHM (SCANNED) (04/20/2023 4:11 PM EST) us Historical Provider ECG ORDERABLES Final Result * ECG (SCANNED) (04/20/2023 11:11 AM EST) us Historical Provider ECG ORDERABLES Final Result * NOVEL CORONAVIRUS LAB 1 - NASOPHARYNGEAL (04/20/2023 9:35 AM EST) Only the most recent of3 resultswithin the time period is included. SARS COV 2 RNA, QL REAL TIME RT PCR NOT DETECTED NOT DETECTED [address] Comment: Negative results do not preclude SARS-CoV-2 infection and should not be used as the sole basis for treatment or other patient management decisions. Optimum specimen types and timing for peak viral levels during infections caused by SARS-CoV-2 has not been determined. The possibility of a false negative result should especially be considered if the patient's recent exposures or clinical presentation suggest that SARS-CoV-2 infection is probable, and diagnostic tests for other causes of illness (e.g., other respiratory illness) are negative. Collection of a new specimen and re-testing may be necessary if the patient is critically ill or clinically deteriorating. NARRATIVE -1 This test was performed using isothermal [employer]ME[employer] and has been approved as Emergency Use Authorization (EUA) for the qualitative detection [id number] Comment:Testing performed at [place], [place] [address] Fluid/Swab NASOPHARYNGEAL SWAB / Unknown 04/20/2023 9:35 AM EST 04/20/2023 9:36 AM EST Ayse Saldaña DO MICROBIOLOGY - GENERAL ORD ERABLES Final Result [address] [address] * XR CHEST PA AND LATERAL 2 VIEWS (04/20/2023 9:26 AM EST) Anatomical Region Laterality Modality Chest Digital Radiogra phy 04/20/2023 9:07 AM EST Impressions 04/20/2023 9:29 AM EST IMPRESSION: No acute cardiopulmonary process. Narrative 04/20/2023 9:29 AM EST EXAM: XR CHEST PA AND LATERAL 2 VIEWS INDICATION: lightheadedness. COMPARISON: None. TECHNIQUE: Two views of the chest FINDINGS: Normal cardiomediastinal contours. Clear lungs. No pleural effusion or pneumothorax. No acute osseous abnormality. Procedure Note Viviane Alexander MD - 04/20/2023 EXAM: XR CHEST PA AND LATERAL 2 VIEWS INDICATION: lightheadedness. COMPARISON: None. TECHNIQUE: Two views of the chest FINDINGS: Normal cardiomediastinal contours. Clear lungs. No pleural effusion or pneumothorax. No acute osseous abnormality. IMPRESSION IMPRESSION: No acute cardiopulmonary process. us Ayse Saldaña DO DIAGNOSTIC IMAGING ORDERAB LES Final Result * CT HEAD WITHOUT CONTRAST (04/20/2023 9:26 AM EST) Anatomical Region Laterality Modality Head Computed Tomogra phy 04/20/2023 9:07 AM EST Impressions 04/20/2023 9:33 AM EST IMPRESSION: No acute intracranial process. No substantial change since 05/10/2021. Narrative 04/20/2023 9:33 AM EST EXAM: CT HEAD WITHOUT CONTRAST CLINICAL INDICATION: Lightheadedness COMPARISON: CT head 05/10/2021. TECHNIQUE: Axial CT images of the brain were obtained without contrast. Coronal and sagittal reformats were obtained. Dose reduction techniques were achieved by using automated exposure control and/or adjustment of mA and/or kV according to patient size and/or use of iterative reconstruction technique. FINDINGS: No intracranial hemorrhage, extra-axial fluid collection, hydrocephalus, midline shift, or acute large vessel territory infarction. No other mass effect. Basal cisterns are patent. No calvarial fracture. Normal soft tissues. Paranasal sinuses and mastoid air cells are well-aerated. Procedure Note Floresita Nguyen MD - 04/20/2023 EXAM: CT HEAD WITHOUT CONTRAST CLINICAL INDICATION: Lightheadedness COMPARISON: CT head 05/10/2021. TECHNIQUE: Axial CT images of the brain were obtained without contrast.Coronal and sagittal reformats were obtained. Dose reduction techniques wereachieved by using automated exposure control and/or adjustment of mA and/or kVaccording to patient size and/or use of iterative reconstruction technique. FINDINGS: No intracranial hemorrhage, extra-axial fluid collection, hydrocephalus, midline shift, or acute large vessel territory infarction. No other mass effect. Basal cisterns are patent. No calvarial fracture. Normal soft tissues. Paranasal sinuses and mastoidair cells are well-aerated. IMPRESSION IMPRESSION: No acute intracranial process. No substantial change since 05/10/2021. Ayse Saldaña DO CT ORDERABLES Final Resu lt * TROPONIN (04/20/2023 9:16 AM EST) Only the most recent of2 resultswithin the time period is included. TROPONIN <0.02 0 - 0.08 ng/mL [address] Comment:Testing performed at [place], [place] [address] 04/20/2023 9:16 AM EST 04/20/2023 9:17 AM EST Aysecharlette Saldaña DO CHEMISTRY ORDERABLES Final Result [address] [address] * (ABNORMAL) CHEM 7 (LYTES,BUN,CREA,GLUC) (04/17/2023 12:54 PM EST) Only the most recent of2 resultswithin the time period is included. Glucose 90 70 - 100 MG/DL [address] Comment: NORMAL <100 mg/dL PREDIABETES 101-126 mg/dL DIABETES 126 mg/dL or higher BUN 10 7 - 20 MG/DL [address] CREATININE SERUM 0.70 0.70 - 1.20 MG/DL [address] SODIUM 134(L) 137 - 145 MMOL/L [address] Potassium 3.9 3.5 - 5.1 MMOL/L [address] CHLORIDE 100 98 - 107 MMOL/L [address] Comment:Please note: Triglyc eride levels of 600mg/dL or higher may positively bias chloride results by approximately 2.1 mmol CARBON DIOXIDE (CO2) 23 22 - 30 MMOL/L [address] ESTIMATED GFR, NON AMER 90 ml/min/1. 73sq.m [address] ESTIMATED GFR, 108 ml/min/1. [address]sq[address] GFR COMMENT Average GFR for 60-69 years old = 85. [address] Comment: Chronic Kidney disease, GFR = <60. Kidney failure, GFR = <15. The GFR estimate is not adjusted for extreme body surface area or acute process, nor has it been validated for women or ethnic groups other than and . Blood 04/17/2023 12:5 4 PM EST 04/17/2023 12:57 PM EST Hunter Davis MD CHEMISTRY ORDERABLES Final Re sult [address] [address] * ECG (SCANNED) (04/17/2023 8:40 AM EST) Historical Provider ECG ORDERABLES Final Result * [place] REMOVAL IMPACTED CERUMEN INSTRUMENTATION UNILAT (03/31/2023 9:20 AM EST) Narrative James Page MD - 03/31/2023 9:20 AM EST James Page MD 03/31/2023 9:54 AM Procedure: RIGHT removal of impacted cerumen requiring instrumentation under binocular otomicroscopy (CPT 86275 ) Performed by: James Page MD Pre-procedure diagnosis: Impacted cerumen, hearing loss Post-procedure diagnosis: Same Description: After obtaining verbal informed consent, the patient was positioned seated upright. The binocular microscope and a disposable otic speculum were used to examine the bilateral ears. Impacted cerumen was removed with instrumentation including cerumen loops and alligator forceps, and suction. The findings following removal are as described below. The speculum was removed. The patient tolerated the procedure well and I performed the procedure myself. Findings: LEFT ear canal patent, tympanic membrane midposition, pearly smith, and mobile without fluid or infection RIGHT ear canal patent, tympanic membrane midposition, pearly smith, and mobile without fluid or infection Procedure: Rigid nasal endoscopy (CPT 41024) Performed by: James Page MD Pre-procedure diagnosis: Nasal congestion not able to visualize posteriorly Post-procedure diagnosis: Same Description: After obtaining informed consent, the patient was positioned seated upright. The 0-degree rigid nasal endoscope was inserted in a two-pass maneuver into the right nasal cavity and then the left. The findings are as described below. The scope was removed. The patient tolerated the procedure well and I performed the procedure myself. Findings: Right: Nasal cavity with moderate turbinate hypertrophy, no pus, no polyps, no masses Left: Nasal cavity with moderate turbinate hypertrophy, no pus, no polyps, no masses Nasopharynx: Clear, bilateral eustachian tube orifices patent and accessible Septum: Moderately deviated James Page MD [place] - AUDITORY SYSTEM SERVICES Final Result * [place] NASAL ENDOSCOPY,DX (03/31/2023 9:20 AM EST) Narrative James Page MD - 03/31/2023 9:20 AM EST James Page MD 03/31/2023 9:54 AM Procedure: RIGHT removal of impacted cerumen requiring instrumentation under binocular otomicroscopy (CPT 41847 ) Performed by: James Page MD Pre-procedure diagnosis: Impacted cerumen, hearing loss Post-procedure diagnosis: Same Description: After obtaining verbal informed consent, the patient was positioned seated upright. The binocular microscope and a disposable otic speculum were used to examine the bilateral ears. Impacted cerumen was removed with instrumentation including cerumen loops and alligator forceps, and suction. The findings following removal are as described below. The speculum was removed. The patient tolerated the procedure well and I performed the procedure myself. Findings: LEFT ear canal patent, tympanic membrane midposition, pearly smith, and mobile without fluid or infection RIGHT ear canal patent, tympanic membrane midposition, pearly smith, and mobile without fluid or infection Procedure: Rigid nasal endoscopy (CPT 12641) Performed by: James Page MD Pre-procedure diagnosis: Nasal congestion not able to visualize posteriorly Post-procedure diagnosis: Same Description: After obtaining informed consent, the patient was positioned seated upright. The 0-degree rigid nasal endoscope was inserted in a two-pass maneuver into the right nasal cavity and then the left. The findings are as described below. The scope was removed. The patient tolerated the procedure well and I performed the procedure myself. Findings: Right: Nasal cavity with moderate turbinate hypertrophy, no pus, no polyps, no masses Left: Nasal cavity with moderate turbinate hypertrophy, no pus, no polyps, no masses Nasopharynx: Clear, bilateral eustachian tube orifices patent and accessible Septum: Moderately deviated James Page MD [place] - RESPIRATORY SYSTEM SERVIC ES Final Result * MAMMO SCREENING WITH NAPOLEON BILATERAL (10/21/2022 8:43 AM EDT) Anatomical Region Laterality Modality breast Bilateral Mammography 10/21/2022 8:22 AM EDT Impressions 10/21/2022 4:02 PM EDT IMPRESSION: Stable benign findings without definite interval change or sign of malignancy. BIRADS: 2 - Benign, no evidence of malignancy. Normal interval followup is recommended in 12 months. OVERALL ASSESSMENT- BENIGN A letter of notification will be sent to the patient regarding the results. Narrative 10/21/2022 4:02 PM EDT EXAM: MAMMO SCREENING WITH NAPOLEON BILATERAL HISTORY: SCREENING MAMMOGRAM COMPARISON: 10/18/2021, 10/12/2020 10/05/2019 TECHNIQUE: CC and MLO views of both breasts were obtained. 3-D tomography was performed. CAD was evaluated. FINDINGS: Breast composition: Fatty The mammogram is stable. The breast are identical in size. The breast have multiple benign calcifications which appear unchanged. No calcifications are considerably more pronounced on the right than the left. This is unchanged. No new mass, architectural distortion or definite malignant calcifications are seen. Axillary regions are satisfactory. Juju Nova ADJUSTER [employer]-DIVISION SUPERVISOR BREAST IMAGING Final Result * TSH (03/21/2022 8:40 AM EST) Only the most recent of3 resultswithin the time period is included. TSH 3.978 0.45 - 5.33 uIU/ML [address] Blood 03/21/2022 8:40 AM EST 03/21/2022 8:41 AM EST Jose C Piña MD ENDOCRINOLOGY Final Result [address] [address] * MAMMO SCREENING WITH NAPOLEON BILATERAL (10/18/2021 8:08 AM EDT) Anatomical Region Laterality Modality breast Bilateral Mammography 10/18/2021 7:52 AM EDT Impressions 10/19/2021 9:33 AM EDT IMPRESSION: No mammographic evidence of malignancy. BI-RADS 2 - Benign, no evidence of malignancy. Normal interval followup is recommended in 12 months. OVERALL ASSESSMENT- BENIGN A letter of notification will be sent to the patient regarding the results. Narrative 10/19/2021 9:33 AM EDT EXAM: MAMMO SCREENING WITH NAPOLEON BILATERAL HISTORY: Annual breast cancer screening. No current breast related concerns. COMPARISON: October 12, 2020, October 05, 2019 and September 08, 2018. TECHNIQUE: 2-D and 3-D bilateral screening mammography. Computer-aided detection was utilized in the interpretation. FINDINGS: There are scattered fibroglandular densities. Stable benign-appearing calcifications are again seen in both breasts. There are no suspicious masses, areas of architectural distortion or suspicious grouping of microcalcifications identified in either breast. Juju Nova [facility] BREAST IMAGING Final Result * (ABNORMAL) CBC,PLATELETS (09/19/2021 7:34 AM EDT) Only the most recent of2 resultswithin the time period is included. WBC (WHITE BLOOD COUNT) 6.2 3.6 - 11.0 10*3/uL [address] RBC 4.64 4.0 - 5.4 10*6/uL [address] HEMOGLOBIN (HGB) 13.7 12.0 - 16.0 G/DL [address] HEMATOCRIT (HCT) 41.1 36.0 - 48.0 % [address] Mean Cell Volume 88.7 80.0 - 100.[address] Mean Cell HGB 29.5 26.0 - 35.[address] Mean Cell HGB Concentration 33.3 27.0 - 37.0 G/DL [address] RBC Distribution 13.6 11.5 - 14.5 % [address] PLATELET COUNT 304 130.0 - 400.0 10*3/uL [address] Mean Platelet Volume 7.3(L) 7.4 - 11.[address] Blood 09/19/2021 7:34 AM EDT 09/19/2021 7:35 AM EDT us Jose C Piña MD HEMATOLOGY ORDERABLES Final Res ult [address] [place] [address] * XR CHEST AP PORTABLE (09/13/2021 7:58 PM EDT) Anatomical Region Laterality Modality Chest Digital Radiogra phy 09/13/2021 7:39 PM EDT Impressions 09/13/2021 8:31 PM EDT Findings and impression: 1. No acute cardiopulmonary disease. 2. Normal heart size. 3. No acute osseous abnormality. The bones are mineralized. Narrative 09/13/2021 8:31 PM EDT ONE-VIEW CHEST RADIOGRAPH, 09/13/2021 7:39 PM EDT COMPARISON: Chest, 02/16/2021. CLINICAL HISTORY: covid Procedure Note Trotti, Girolamo J, MD - 09/13/2021 ONE-VIEW CHEST RADIOGRAPH, 09/13/2021 7:39 PM EDT COMPARISON: Chest, 02/16/2021. CLINICAL HISTORY: covid IMPRESSION Findings and impression: 1. No acute cardiopulmonary disease. 2. Normal heart size. 3. No acute osseous abnormality. The bones are mineralized. Willow Guadalupe PA-C DIAGNOSTIC IMAGING ORDERABLES Final Result * MRI BRAIN WITHOUT CONTRAST (08/04/2021 8:08 AM EDT) Anatomical Region Laterality Modality Head Magnetic Resonan ce 08/04/2021 7:38 AM EDT Impressions 08/06/2021 12:43 PM EDT IMPRESSION: Normal MRI of the brain. Narrative 08/06/2021 12:43 PM EDT MRI BRAIN WITHOUT CONTRAST, 08/04/2021. HISTORY: Headache. COMPARISON: CT head, 05/10/2021. TECHNIQUE: Sagittal T1, axial T2, FLAIR, diffusion, and T2 gradient images were obtained. FINDINGS: Paranasal sinuses clear. Mastoid air cells clear. Nasopharynx normal. Hand Molder Meat spaces normal. Orbital contents unremarkable. Ventricles are normal in size. No hydrocephalus. No mass effect. No shift of midline. No significant signal abnormalities in the brain. Diffusion images normal. No acute ischemic infarction. T2 gradient images show no hemorrhagic lesions. No masses. Procedure Note Aubrey Boogie MD - 08/06/2021 MRI BRAIN WITHOUT CONTRAST, 08/04/2021. HISTORY: Headache. COMPARISON: CT head, 05/10/2021. TECHNIQUE: Sagittal T1, axial T2, FLAIR, diffusion, and T2 gradient imageswere obtained. FINDINGS: Paranasal sinuses clear. Mastoid air cells clear. Nasopharynxnormal. Hand Molder Meat spaces normal. Orbital contents unremarkable. Ventricles are normal in size. No hydrocephalus. No mass effect. No shiftof midline. No significant signal abnormalities in the brain. Diffusionimages normal. No acute ischemic infarction. T2 gradient images show nohemorrhagic lesions. No masses. IMPRESSION IMPRESSION: Normal MRI of the brain. Michael Noyola MD MR ORDERABLES Final Result * MRI ARTERIOGRAM BRAIN WITHOUT CONTRAST (08/04/2021 8:08 AM EDT) Anatomical Region Laterality Modality Head, vascular Magnetic Resonan ce 08/04/2021 7:38 AM EDT Impressions 08/06/2021 12:23 PM EDT IMPRESSION: Normal MRA of the brain. Narrative 08/06/2021 12:23 PM EDT MRA BRAIN WITHOUT CONTRAST, 08/04/2021. HISTORY: Headaches. Headache above right eye. COMPARISON: None. TECHNIQUE: Axial 3-D time of flight MRA images were obtained through the brain. Multiple reconstructed MIP images were obtained. FINDINGS: Distal internal carotid arteries are normal. Anterior cerebral arteries normal. Middle cerebral arteries are normal. Distal vertebral arteries are normal. Basilar artery normal. Cerebellar arteries normal. No aneurysm. No vascular malformation. Procedure Note Aubrey Boogie MD - 08/06/2021 MRA BRAIN WITHOUT CONTRAST, 08/04/2021. HISTORY: Headaches. Headache above right eye. COMPARISON: None. TECHNIQUE: Axial 3-D time of flight MRA images were obtained through thebrain. Multiple reconstructed MIP images were obtained. FINDINGS: Distal internal carotid arteries are normal. Anterior cerebral arteries normal. Middle cerebral arteries are normal. Distal vertebralarteries are normal. Basilar artery normal. Cerebellar arteries normal. Noaneurysm. No vascular malformation. IMPRESSION IMPRESSION: Normal MRA of the brain. us Michael Noyola MD MR ORDERABLES Final Result * HOLTER MONITOR - USP (05/28/2021 7:39 AM EST) 05/28/2021 7:39 AM EST 05/10/2021 12:30 PM EST Narrative CARDIOLOGY - 05/29/2021 7:34 AM EST APPROVED REPORT Exam: >48 hrs up to 7 days Indications: palpitation Medications: See Medications List Hookup Date: 05/10/2021 Removal Date: 05/17/2021 Scan Date: 05/28/2021 Heart Rate Data Min HR: 60 BPM Avg HR: 84 BPM Max HR: 141 BPM Conclusion - Predominant rhythm: NSR, average rate 84, range 60 1 41 -9% sinus tachycardia - PAC 0.02 %-rare - PVC 0.01 %- rare -No SVT, atrial fibrillation or complex ventricular arrhythmias -5 patient activations, only 1 correlated with a PAC Impression: Unremarkable 7 day Holter with only rare PAC and PVC with only one symptomatic PAC. Other patient activations occurring during sinus rhythm. Reading Provider: PARKER BUCHANAN DO Signed: 05/29/2021 07:34 Procedure Note Ric Ahuja II, MD - 05/29/2021 APPROVED REPORT Exam: >48 hrs up to 7 days Indications: palpitation Medications: See Medications List Hookup Date: 05/10/2021 Removal Date: 05/17/2021 Scan Date: 05/28/2021 Heart Rate Data Min HR: 60 BPM Avg HR: 84 BPM Max HR: 141 BPM Conclusion - Predominant rhythm: NSR, average rate 84, range 60 1 41 -9% sinus tachycardia - PAC 0.02 %-rare - PVC 0.01 %- rare -No SVT, atrial fibrillation or complex ventricular arrhythmias -5 patient activations, only 1 correlated with a PAC Impression: Unremarkable 7 day Holter with only rare PAC and PVC with chante symptomatic PAC. Other patient activations occurring during sinusrhythm. Reading Provider: PARKER BUCHANAN DO Signed: 05/29/2021 07:34 Cheryl Ordonez ADJUSTER [employer]-DIVISION SUPERVISOR CARDIAC SERVICES ORDERAB LES Final Result CARDIOLOGY * CT HEAD WITHOUT CONTRAST (05/10/2021 12:49 PM EST) Anatomical Region Laterality Modality Head Computed Tomogra phy 05/10/2021 12:4 6 PM EST Impressions 05/10/2021 1:51 PM EST IMPRESSION: No acute intracranial abnormality. Narrative 05/10/2021 1:51 PM EST EXAMINATION: CT HEAD WITHOUT CONTRAST HISTORY: Elevated blood pressure, dizziness, sinus pain, headaches COMPARISON: None. TECHNIQUE: CT examination of the head without IV contrast. Dose reduction techniques were achieved by using automated exposure control and/or adjustment of mA and/or kV according to patient size and/or use of iterative reconstruction technique. FINDINGS: The structures of the posterior fossa and supratentorial space are developmentally normal. Smith/white matter differentiation is preserved throughout. No evident skull fracture, hemorrhage or acute ischemia. No midline shift or mass. Normal size of the ventricles and sulci for age. Normal orbits. Pneumatized portions of the skull are clear. Procedure Note Dion Ramesh DO - 05/10/2021 EXAMINATION: CT HEAD WITHOUT CONTRAST HISTORY: Elevated blood pressure, dizziness, sinus pain, headaches COMPARISON: None. TECHNIQUE: CT examination of the head without IV contrast. Dose reduction techniques were achieved by using automated exposurecontrol and/or adjustment of mA and/or kV according to patient size and/or use of iterative reconstruction technique. FINDINGS: The structures of the posterior fossa and supratentorial spaceare developmentally normal. Smith/white matter differentiation is preserved throughout. No evident skull fracture, hemorrhage or acute ischemia. Nomidline shift or mass. Normal size of the ventricles and sulci for age. Normal orbits. Pneumatized portions of the skull are clear. IMPRESSION IMPRESSION: No acute intracranial abnormality. us Cheryl Ordonez ADJUSTER [employer]-DIVISION SUPERVISOR CT ORDERABLES Final Re sult * XR CHEST AP PORTABLE (02/16/2021 5:32 AM EST) Anatomical Region Laterality Modality Chest Digital Radiogra phy 02/16/2021 5:19 AM EST Impressions 02/16/2021 6:14 AM EST IMPRESSION: 1. No acute cardiopulmonary abnormality. Narrative 02/16/2021 6:14 AM EST EXAM: XR CHEST AP PORTABLE HISTORY: cough COMPARISON: None. TECHNIQUE: One view of the chest was obtained. FINDINGS: The cardiac silhouette is normal in size. The lungs are clear. There is no significant pneumothorax or pleural effusion. No acute osseous abnormality is seen. Procedure Note Vahid Andrews MD - 02/16/2021 EXAM: XR CHEST AP PORTABLE HISTORY: cough COMPARISON: None. TECHNIQUE: One view of the chest was obtained. FINDINGS: The cardiac silhouette is normal in size. The lungs are clear.There is no significant pneumothorax or pleural effusion. No acute osseous abnormality is seen. IMPRESSION IMPRESSION: 1. No acute cardiopulmonary abnormality. Result José Manuel Davis MD DIAGNOSTIC IMAGING ORDERABLES Final Result * LACTATE, BLOOD (02/16/2021 4:31 AM EST) LACTATE, PLASMA 1.3 0.5 - 2.0 MMOL/L [address] Blood 02/16/2021 4:31 AM EST 02/16/2021 4:51 AM EST Result José Manuel Davis MD CHEMISTRY ORDERABLES Final Re sult Performing Organization Address [facility] Co de Phone Number [address] [address] * TROPONIN I, HIGH SENSITIVITY (02/16/2021 4:31 AM EST) hs-Troponin I <2 0 - 12 pg/mL [address] Comment: Indeterminant: >12 to 100 pg/mL female >20 to 100 pg/mL male Indicative of myocardial injury. Serial sampling is recommended, a change of greater than or equal to 20 pg/mL is indicative of acute coronary syndrome. Blood 02/16/2021 4:31 AM EST 02/16/2021 4:51 AM EST us Hunter Davis MD CHEMISTRY ORDERABLES Final Re sult Performing Organization Address [facility] Co de Phone Number [address] [address] * LIPASE (02/16/2021 4:31 AM EST) LIPASE 31 23 - 300 U/L [address] Blood 02/16/2021 4:31 AM EST 02/16/2021 4:51 AM EST us Hunter Davis MD CHEMISTRY ORDERABLES Final Re sult Performing Organization Address [facility]/ZIP Co de Phone Number [address] [address] * ECG (SCANNED) (02/16/2021) us Historical Provider ECG ORDERABLES Final Result * (ABNORMAL) SARS-COV-2 RAPID (02/11/2021 3:56 PM EST) SARS COV 2 RNA, QL REAL TIME RT PCR DETECTED(A) NOT DETECTED [address] Comment: CALLED TO AND READ BACK BY [email or web address] CARLOS A ENHANCED CONTACT, AND DROPLET ISOLATION IS REQUIRED FOR INPATIENTS WITH SARS-CoV-2. NARRATIVE -1 This test was performed using isothermal [employer]ME[employer] and has been approved as Emergency Use Authorization (EUA) for the qualitative detection ctDUHG-YoM-[address] nucleic acid. [address] Performed by: [facility] [address] Fluid/Swab 02/11/2021 3:56 PM EST 02/11/2021 3:57 PM EST us King Weiss PAC MICROBIOLOGY - GENERAL ORDER ARABELLA Final Result Performing Organization Address [facility] Co de Phone Number [address] [address] * MAMMO SCREENING WITH NAPOLEON BILATERAL (10/12/2020 9:38 AM EDT) Anatomical Region Laterality Modality breast Bilateral Mammography 10/12/2020 9:24 AM EDT Impressions 10/12/2020 6:25 PM EDT IMPRESSION: No interval change or sign of malignancy is seen. BI-RADS 2 - Benign, no evidence of malignancy. Normal interval followup is recommended in 12 months. OVERALL ASSESSMENT- BENIGN A letter of notification will be sent to the patient regarding the results. Narrative 10/12/2020 6:25 PM EDT EXAM: MAMMO SCREENING WITH NAPOLEON BILATERAL HISTORY: Screening mammogram. COMPARISON: 10/05/2019 and 09/08/2018. TECHNIQUE: Craniocaudal and mediolateral oblique views of both breasts were obtained. 3-D tomography was performed. CAD was reviewed. FINDINGS: Breast composition: Fatty. The breasts are identical in size. Both breasts have scattered benign stable calcifications especially medially. I do not see any discrete new area of mass, architectural distortion, or malignant microcalcifications. Axillary regions are satisfactory. Juju Nova ADJUSTER [employer]-DIVISION SUPERVISOR BREAST IMAGING Final Result * COLONOSCOPY (10/02/2020 8:38 AM EDT) Anatomical Region Laterality Modality Other 10/02/2020 8:38 AM EDT Narrative 10/02/2020 9:41 AM EDT [facility] Gastroenterology Patient Name: Nicole Sy Procedure Date: 10/02/2020 8:38 AM Date of : 1960 Admit Type: Outpatient Age: 60 Room: Endo Room1 Gender: Female Note Status: Finalized Attending MD: Iris Rosales II, MD Procedure: Colonoscopy Indications: Screening for colorectal malignant neoplasm Providers: Iris Rosales II, MD Referring MD: Self SelfMD Complications: No immediate complications. Estimated blood loss: None. Medicines: Monitored Anesthesia Care Procedure: Pre-Anesthesia Assessment: - Prior to the procedure, a History and Physical was performed, and patient medications and allergies were reviewed. The patient is competent. The risks and benefits of the procedure and the sedation options and risks were discussed with the patient. All questions were answered and informed consent was obtained. Patient identification and proposed procedure were verified by the physician in the pre-procedure area. Mental Status Examination: alert and oriented. Airway Examination: normal oropharyngeal airway and neck mobility. Respiratory Examination: clear to auscultation. CV Examination: normal. Prophylactic Antibiotics: The patient does not require prophylactic antibiotics. Prior Anticoagulants: The patient has taken no anticoagulant or antiplatelet agents. After reviewing the risks and benefits, the patient was deemed in satisfactory condition to undergo the procedure. The anesthesia plan was to use moderate sedation / analgesia (conscious sedation). Immediately prior to administration of medications, the patient was re-assessed for adequacy to receive sedatives. The heart rate, respiratory rate, oxygen saturations, blood pressure, adequacy of pulmonary ventilation, and response to care were monitored throughout the procedure. The physical status of the patient was re-assessed after the procedure. After I obtained informed consent, the scope was passed under direct vision. Throughout the procedure, the patient's blood pressure, pulse, and oxygen saturations were monitored continuously. The Colonoscope was introduced through the anus and advanced to the cecum, identified by appendiceal orifice and ileocecal valve. The colonoscopy was performed without difficulty. The patient tolerated the procedure well. The quality of the bowel preparation was good. Findings: The sigmoid colon was grossly tortuous. Advancing the scope required changing the patient's position. Multiple medium-mouthed diverticula were found in the sigmoid colon. There was no evidence of diverticular bleeding. Impression: - Tortuous colon. - No specimens collected. Recommendation: - Discharge patient to home. - Resume previous diet. - Repeat colonoscopy in 5 years for surveillance. Procedure Code(s): --- Professional --- G0121, Colorectal cancer screening; colonoscopy on individual not meeting criteria for high risk Diagnosis Code(s): --- Professional --- Z12.11, Encounter for screening for malignant neoplasm of colon Q43.8, Other specified congenital malformations of intestine CPT copyright 2020 [employer]. All rights reserved. The codes documented in this report are preliminary and upon population geneticist review may be revised to meet current compliance requirements. Iris Rosales II, MD James A Goudy II, MD 10/02/2020 9:40:15 AM This report has been signed electronically. Number of Addenda: 0 Note Initiated On: 10/02/2020 8:38 AM us Self Self GI/BRONCH PROCEDURE ORDERABLES F inal Result * ORDERS (SCANNED) (10/02/2020) Anatomical Region Laterality Modality Other Historical Provider PROC - OPERATIVE Final Resul t * MAMMO SCREENING WITH NAPOLEON BILATERAL (10/05/2019 1:29 PM EDT) Anatomical Region Laterality Modality breast Bilateral Mammography 10/05/2019 1:16 PM EDT Impressions 10/06/2019 8:38 AM EDT IMPRESSION: No suspicious abnormalities. BI-RADS 2 - Benign, no evidence of malignancy. Normal interval followup is recommended in 12 months. OVERALL ASSESSMENT- BENIGN A letter of notification will be sent to the patient regarding the results. Narrative 10/06/2019 8:38 AM EDT PROCEDURE: MAMMO SCREENING WITH NAPOLEON BILATERAL 10/05/2019 1:16 PM EDT CLINICAL HISTORY: SCREENING MAMMOGRAM COMPARISON: 09/08/2018, 08/29/2017, 07/23/2016. TECHNIQUE: Routine MLO and CC views of the bilateral breasts were obtained. CAD was utilized. Tomography was performed. FINDINGS: Breast density: Scattered fibroglandular densities. There are no suspicious masses, architectural distortion, or suspicious microcalcifications. There are benign-appearing calcifications again noted. Juju Hyman Avtar ADJUSTER ELECTRICAL CONTACTS-DIVISION SUPERVISOR BREAST IMAGING Final Result * BONE DENSITY AXIAL (HIP, PELVIS, SPINE) (10/05/2019 1:25 PM EDT) Anatomical Region Laterality Modality hip, Pelvis, L-spine Digital Rad iography 10/05/2019 12:5 6 PM EDT Impressions 10/06/2019 8:05 AM EDT IMPRESSION: World [employer] Organization Classification: Osteopenia - Moderate Fracture Risk Narrative 10/06/2019 8:05 AM EDT EXAMINATION: BONE DENSITY AXIAL (HIP, PELVIS, SPINE) HISTORY: osteopenia COMPARISON: No relevant comparison available. TECHNIQUE: Dual-energy X-ray absorptiometry (DXA) was performed. FINDINGS: SPINE ANALYSIS: Average bone mineral density is 0.839 g/cm2. T-score (standard deviation relative to young adult mean): -1.9 . HIP ANALYSIS: Lowest bone mineral density is within the left femoral trochanter, 0.546 g/cm2. T-score (standard deviation relative to young adult mean): -1.6 . Procedure Note Yoni Lane MD - 10/06/2019 EXAMINATION: BONE DENSITY AXIAL (HIP, PELVIS, SPINE) HISTORY: osteopenia COMPARISON: No relevant comparison available. TECHNIQUE: Dual-energy X-ray absorptiometry (DXA) was performed. FINDINGS: SPINE ANALYSIS: Average bone mineral density is 0.839 g/cm2. T-score (standard deviation relative to young adult mean): -1.9 . HIP ANALYSIS: Lowest bone mineral density is within the left femoral trochanter, 0.546g/cm2. T-score (standard deviation relative to young adult mean): -1.6 . IMPRESSION IMPRESSION: World [employer] Organization Classification: Osteopenia - Moderate FractureRisk Juju Nova APRN-DIVISION SUPERVISOR DEXA ORDERABLES Final Result * PAP IG, RFX HPV ASCU (08/09/2019 1:29 PM EDT) Only the most recent of3 resultswithin the time period is included. DIAGNOSIS Comment [facility] Comment:NEGATIVE FOR INTRAEP ITHELIAL LESION OR MALIGNANCY. Specimen Adequacy: Comment Boogie SCHMITZ HUDSON Comment:Satisfactory for robert luation. No endocervical component is identified. Performed by: Comment LARRY Ortega HUDSON Comment:Wes Issa totechnologist . . [facility] NOTE Comment [facility] Comment: (NOTE) The Pap smear is a screening test designed to aid in the detection of premalignant and malignant conditions of the uterine cervix. It is not a diagnostic procedure and should not be used as the sole means of detecting cervical cancer. Both false-positive and false-negative reports do occur. . Comment [facility] Comment: (NOTE) The HPV DNA reflex criteria were not met with this specimen result therefore, no HPV testing was performed. Source.............Vagina Dates / Results....2008 Other..............Post Menopausal No. of containers..01 ThinPrep Vial METHOD TYPE Comment [facility] Comment: (NOTE) This liquid based ThinPrep(R) pap test was screened with the use of an image guided system. PERFORMED AT [facility] 08/09/2019 1:29 PM EDT 08/09/2019 6:40 PM EDT Juju Nova APRN-DIVISION SUPERVISOR CYTOLOGY Final Result [facility] [address] [place] [address] * XR KNEE RIGHT 4+ VIEWS (03/08/2019 3:17 PM EST) Anatomical Region Laterality Modality knee, MSK Right Digital Radiogra phy 03/08/2019 3:10 PM EST Impressions 03/08/2019 4:22 PM EST IMPRESSION: Mild degenerative changes without acute abnormality in the right knee. Narrative 03/08/2019 4:22 PM EST EXAM: XR KNEE RIGHT 4+ VIEWS HISTORY: right knee pain and weakness COMPARISON: None. FINDINGS: 4 views of the right knee were obtained. No acute fracture or dislocation. Joint space is maintained. Mild marginal osteophyte formation is noted in the medial and lateral compartments, and to a lesser degree in the patellofemoral joint. The patella is appropriately positioned. Articular surfaces are smooth in contour. No significant joint effusion. Procedure Note Yoni Spears MD - 03/08/2019 EXAM: XR KNEE RIGHT 4+ VIEWS HISTORY: right knee pain and weakness COMPARISON: None. FINDINGS: 4 views of the right knee were obtained. No acute fracture or dislocation. Joint space is maintained. Mild marginal osteophyte formationis noted in the medial and lateral compartments, and to a lesser degree inthe patellofemoral joint. The patella is appropriately positioned. Articular surfaces are smooth in contour. No significant joint effusion. IMPRESSION IMPRESSION: Mild degenerative changes without acute abnormality in the right knee. Gabbi Monique ADJUSTER ELECT[employer]TACTS-DIVISION SUPERVISOR DIAGNOSTIC IMAGING SARAH ANNWenceslao DAVIS Final Result * LABS (OUTSIDE) (11/05/2018) Only the most recent of2 resultswithin the time period is included. Jose C Piña MD LAB SEND OUTS Final Result * MAMMO SCREENING BILATERAL (09/08/2018 9:35 AM EDT) Anatomical Region Laterality Modality breast Bilateral Mammography 09/08/2018 9:20 AM EDT Impressions 09/08/2018 11:45 AM EDT IMPRESSION: No suspicious abnormalities. Benign findings. BI-RADS 2 - Benign, no evidence of malignancy. Normal interval followup is recommended in 12 months. OVERALL ASSESSMENT- BENIGN A letter of notification will be sent to the patient regarding the results. Narrative 09/08/2018 11:45 AM EDT PROCEDURE: MAMMO SCREENING BILATERAL 09/08/2018 9:20 AM EDT CLINICAL HISTORY: screening for breast ca COMPARISON: 08/29/2017, 07/23/2016, 06/23/2015. TECHNIQUE: Routine MLO and CC views of the bilateral breasts were obtained. CAD was utilized. FINDINGS: BREAST DENSITY: Scattered fibroglandular densities. There are no suspicious masses, architectural distortion, or suspicious microcalcifications in either breast. A few benign-appearing calcifications are noted bilaterally, greater on the right side. us Juju Nova ADJUSTER [employer]TA[employer]-DIVISION SUPERVISOR BREAST IMAGING Final Result * PAP IG (IMAGE GUIDED) (12/24/2017 9:50 AM EDT) DIAGNOSIS Comment [facility] Comment:NEGATIVE FOR INTRAEP ITHELIAL LESION AND MALIGNANCY. Specimen Adequacy: Krishna SCHMITZ HUDSON Comment:Satisfactory for robert luation. Performed by: Comment LARRY Ortega HUDSON Comment:Wes Guerrero totechnologist (ASCP) . . [facility] NOTE Comment [facility] Comment: (NOTE) The Pap smear is a screening test designed to aid in the detection of premalignant and malignant conditions of the uterine cervix. It is not a diagnostic procedure and should not be used as the sole means of detecting cervical cancer. Both false-positive and false-negative reports do occur. IGLBP CPT CODE AUTOMATION Comment [facility] Comment: (NOTE) This liquid based ThinPrep(R) pap test was screened with the use of an image guided system. No. of containers..01 ThinPrep Vial PERFORMED AT [facility] 12/24/2017 9:50 AM EDT 12/25/2017 2:09 AM EDT us Darion Ortiz MD CYTOLOGY Final Result [facility] [address] [place] [address] * MAMMO SCREENING BILATERAL (08/29/2017 9:09 AM EDT) Anatomical Region Laterality Modality breast Bilateral Mammography 08/29/2017 9:04 AM EDT Impressions 08/29/2017 9:04 AM EDT IMPRESSION: Stable pattern. BI-RADS 2 - Benign, no evidence of malignancy. OVERALL ASSESSMENT- BENIGN RECOMMENDATIONS: Continued clinical correlation and yearly screening follow-up. A letter of notification will be sent to the patient regarding the results. Narrative 08/29/2017 9:04 AM EDT BILATERAL DIGITAL SCREENING MAMMOGRAM, CAD: REASON FOR EXAM: SCREENING. COMPARISON: 07/23/2016, 06/23/2015, and 06/17/2014. TECHNIQUE: Bilateral craniocaudal and mediolateral oblique projections were obtained with additional CAD evaluation. FINDINGS: Breast composition: Scattered fibroglandular tissue density pattern noted. No new mass, malignant-type calcifications, architectural distortion, or other interval change is seen, to suggest malignancy. Stable benign-appearing calcifications are again seen. Mild focal areas of glandular asymmetry are noted. Domi Ochoa ADJUSTER ELECT[employer]TACTS-DIVISION SUPERVISOR BREAST IMAGING Final R esult * HPV, HIGH-RISK (06/16/2017 1:14 PM EDT) HPV High Risk Negative Negative [facility] Comment: (NOTE) This high-risk HPV test detects thirteen high-risk types (16/18/31/33/35/39/45/51/52/56/58/59/68) without differentiation. No. of containers..01 ThinPrep Vial PERFORMED AT [facility] 06/16/2017 1:14 PM EDT 06/17/2017 12:42 AM EDT us Darion Ortiz MD CYTOLOGY Final Result [facility] [address] [place] [address] * BONE DENSITY AXIAL (HIP, PELVIS, SPINE) (07/23/2016 1:54 PM EDT) Anatomical Region Laterality Modality hip, Pelvis, L-spine Ultrasound Impressions 07/24/2016 10:36 AM EDT : (SEE PRINTED GE INFUSDAR PRODIGY REPORT IN SYNAPSE FOR COMPLETE BONE DENSITOMETRY REPORT) 1. Based on the measurements above, the Bone Density of AP spine is severely osteopenic, and the Bilateral Hips are early Osteopeniac This puts the patient at moderate risk for fracture. Note: T-Score is defined as the number of standard deviations from the young adult average. Negative values are less than average, positive values are greater than average. Narrative 07/24/2016 10:36 AM EDT DEXA PROCEDURE REFERRING PHYSICIAN: Dr. Ortiz TECHNOLOGIST: Virgen Cates PROCEDURE DATE: 07/23/2016 TECHNIQUE: The bone mineral density was measured across the lumbar spine and bilateral hips utilizing a [employer] Prodigy unit. INDICATIONS: Osteopenia PROCEDURE DETAILS: DEXA done. T-Scores - AP Spine -2.2 (-1.8 05/2014) 0.921 g/cm2 (0.972 05/2014) Lt. Hip -1.2 (-1.5 05/2014) 0.855 g/cm2 (0.819 05/2014) Lt. Femoral Neck -1.1 (-1.3 05/2014) 0.882g/cm2 (0.859 05/2014) Rt. Hip -1.2 (-1.1 05/2014) 0.854 g/cm2 (0.867 05/2014) Rt. Femoral Neck -1.3 (-1.3 05/2014) 0.854g/cm2 (0.863 05/2014) FINAL Darion Ortiz MD DEXA ORDERABLES Final Result * MAMMOGRAPHY (OUTSIDE) (07/23/2016) Darion Ortiz MD BREAST IMAGING Final Result Visit Diagnoses Diagnosis Start Date Osteopenia Disorder of bone and cartilage, unspecified 07/17/2016 Osteopenia Disorder of bone and cartilage, unspecified 07/19/2016 Mixed hyperlipidemia 12/03/2016 Arthralgia of multiple joints Pain in joint, multiple sites 01/06/2017 Mixed hyperlipidemia 01/06/2017 Trochanteric bursitis of right hip Enthesopathy of hip region 01/06/2017 Mixed hyperlipidemia 02/17/2017 Arthralgia of multiple joints Pain in joint, multiple sites 04/23/2017 Pain of left lower extremity 04/23/2017 Encounter for gynecological examination without abnormal finding Routine gynecological examination 06/16/2017 Colon cancer screening Special screening for malignant neoplasms, colon 06/16/2017 Encounter for screening mammogram for malignant neoplasm of breast Other screening mammogram 06/16/2017 Osteopenia, unspecified location 06/16/2017 Encounter for screening mammogram for malignant neoplasm of breast Other screening mammogram 08/29/2017 Mixed hyperlipidemia 12/19/2017 Arthralgia of multiple joints Pain in joint, multiple sites 12/19/2017 Obesity: body mass index of 30.0-34.9 Obesity, unspecified 12/19/2017 Trochanteric bursitis of right hip Enthesopathy of hip region 12/19/2017 Gastroesophageal reflux disease, esophagitis presence not specified 12/19/2017 ASCUS of cervix with negative high risk HPV 12/24/2017 Screening for breast cancer Breast screening, unspecified 12/24/2017 Cough 05/23/2018 Viral URI with cough Acute upper respiratory infections of unspecified site 05/23/2018 Mixed hyperlipidemia 07/24/2018 Gastroesophageal reflux disease, esophagitis presence not specified 07/24/2018 Encounter for gynecological examination without abnormal finding Routine gynecological examination 07/29/2018 Screening for vaginal cancer Special screening for malignant neoplasms, vagina 07/29/2018 Screening for colon cancer Special screening for malignant neoplasms, colon 07/29/2018 Trochanteric bursitis of right hip Enthesopathy of hip region 08/07/2018 Screening for breast cancer Breast screening, unspecified 09/08/2018 Mixed hyperlipidemia 10/29/2018 Mixed hyperlipidemia 11/09/2018 Trochanteric bursitis of right hip Enthesopathy of hip region 11/09/2018 Gastroesophageal reflux disease, esophagitis presence not specified 11/09/2018 Health maintenance examination Unspecified general medical examination 11/09/2018 Mixed hyperlipidemia 02/12/2019 Gastroesophageal reflux disease, esophagitis presence not specified 02/12/2019 Acute pain of right knee 03/08/2019 Acute pain of right knee 03/08/2019 Acute pain of right knee 03/10/2019 Right knee pain, unspecified chronicity 03/29/2019 Right knee pain, unspecified chronicity 03/29/2019 Mixed hyperlipidemia 08/05/2019 Encounter for gynecological examination without abnormal finding Routine gynecological examination 08/09/2019 Screening for vaginal cancer Special screening for malignant neoplasms, vagina 08/09/2019 Screening for colon cancer Special screening for malignant neoplasms, colon 08/09/2019 Osteopenia of multiple sites 08/09/2019 Gastroesophageal reflux disease, esophagitis presence not specified 08/11/2019 Trochanteric bursitis of right hip Enthesopathy of hip region 08/11/2019 Mixed hyperlipidemia 08/11/2019 Osteopenia of multiple sites 10/05/2019 Screening for breast cancer Breast screening, unspecified 10/05/2019 Herpes zoster without complication 12/30/2019 Herpes zoster with complication 01/01/2020 Trochanteric bursitis of right hip Enthesopathy of hip region 02/04/2020 Mixed hyperlipidemia 02/04/2020 Mixed hyperlipidemia 07/27/2020 Mixed hyperlipidemia 08/04/2020 Obesity (BMI 30.0-34.9) Obesity, unspecified 08/04/2020 Gastroesophageal reflux disease without esophagitis Esophageal reflux 08/04/2020 Trochanteric bursitis of right hip Enthesopathy of hip region 08/04/2020 History of colonic polyps Personal history of colonic polyps 09/07/2020 Screening for viral disease Special screening examination for unspecified viral disease 09/07/2020 History of colonic polyps Personal history of colonic polyps 10/02/2020 History of colonic polyps Personal history of colonic polyps 10/02/2020 Encounter for gynecological examination without abnormal finding Routine gynecological examination 10/04/2020 Screening for vaginal cancer Special screening for malignant neoplasms, vagina 10/04/2020 Encounter for breast cancer screening using non-mammogram modality 10/04/2020 Screening for colon cancer Special screening for malignant neoplasms, colon 10/04/2020 Osteopenia of multiple sites 10/04/2020 Encounter for breast cancer screening using non-mammogram modality 10/12/2020 Diverticulosis of large intestine without perforation or abscess without bleeding Diverticulosis of colon (without mention of hemorrhage) 10/17/2020 Gastroesophageal reflux disease without esophagitis Esophageal reflux 02/08/2021 COVID-19 02/11/2021 Acute maxillary sinusitis, recurrence not specified 02/11/2021 Fever, unspecified fever cause 02/11/2021 Syncope and collapse 02/16/2021 COVID 02/16/2021 Hypokalemia Hypopotassemia 02/16/2021 Mixed hyperlipidemia 02/26/2021 Trochanteric bursitis of right hip Enthesopathy of hip region 02/26/2021 Gastroesophageal reflux disease without esophagitis Esophageal reflux 02/26/2021 Gastroesophageal reflux disease without esophagitis Esophageal reflux 03/27/2021 Trochanteric bursitis of right hip Enthesopathy of hip region 03/27/2021 Mixed hyperlipidemia 03/27/2021 Migraine with aura and without status migrainosus, not intractable Migraine with aura, without mention of intractable migraine without mention of status migrainosus 03/27/2021 Elevated BP without diagnosis of hypertension 04/24/2021 Heart palpitations Palpitations 04/24/2021 Dizziness Dizziness and giddiness 04/24/2021 Sinus pain Other diseases of nasal cavity and sinuses 04/24/2021 TIA (transient ischemic attack) Unspecified transient cerebral ischemia 04/24/2021 TIA (transient ischemic attack) Unspecified transient cerebral ischemia 05/10/2021 Heart palpitations Palpitations 05/10/2021 Dizziness and giddiness 06/22/2021 Bilateral impacted cerumen Impacted cerumen 06/22/2021 Eustachian tube dysfunction, bilateral 06/22/2021 Bilateral impacted cerumen Impacted cerumen 06/22/2021 Intractable migraine with aura without status migrainosus Migraine with aura, with intractable migraine, so stated, without mention of status migrainosus 06/22/2021 Dizziness and giddiness 06/22/2021 Hearing conservation and treatment exam Encounter for hearing conservation and treatment 06/22/2021 Ear fullness, bilateral 06/22/2021 Dizziness and giddiness 07/17/2021 Intractable migraine with aura without status migrainosus Migraine with aura, with intractable migraine, so stated, without mention of status migrainosus 07/17/2021 Primary thunderclap headache 07/31/2021 Other headache syndrome 07/31/2021 Primary thunderclap headache 08/04/2021 Primary thunderclap headache 08/04/2021 COVID-19 virus infection 09/13/2021 Mixed hyperlipidemia 09/25/2021 Trochanteric bursitis of right hip Enthesopathy of hip region 09/25/2021 Gastroesophageal reflux disease without esophagitis Esophageal reflux 09/25/2021 Encounter for gynecological examination without abnormal finding Routine gynecological examination 10/09/2021 Screening for vaginal cancer Special screening for malignant neoplasms, vagina 10/09/2021 Encounter for screening mammogram for malignant neoplasm of breast Other screening mammogram 10/09/2021 Screening for colon cancer Special screening for malignant neoplasms, colon 10/09/2021 Osteopenia of multiple sites 10/09/2021 Encounter for screening mammogram for malignant neoplasm of breast Other screening mammogram 10/18/2021 Mixed hyperlipidemia 03/26/2022 Gastroesophageal reflux disease without esophagitis Esophageal reflux 03/26/2022 Arthralgia, unspecified joint 03/26/2022 Gastroesophageal reflux disease without esophagitis Esophageal reflux 09/18/2022 Mixed hyperlipidemia 09/25/2022 Arthralgia, unspecified joint 09/25/2022 Gastroesophageal reflux disease without esophagitis Esophageal reflux 09/25/2022 Irritable bowel syndrome, unspecified type 09/25/2022 Encounter for gynecological examination (general) (routine) with abnormal findings 10/11/2022 Screening for vaginal cancer Special screening for malignant neoplasms, vagina 10/11/2022 Encounter for screening mammogram for malignant neoplasm of breast Other screening mammogram 10/11/2022 Screening for colon cancer Special screening for malignant neoplasms, colon 10/11/2022 Lichen sclerosus of female genitalia 10/11/2022 Anogenital lichen sclerosus Circumscribed scleroderma 10/11/2022 Encounter for screening mammogram for malignant neoplasm of breast Other screening mammogram 10/21/2022 Lichen sclerosus of female genitalia 11/13/2022 Anogenital lichen sclerosus Circumscribed scleroderma 11/13/2022 Lichen sclerosus of female genitalia 12/18/2022 Anogenital lichen sclerosus Circumscribed scleroderma 12/18/2022 Lichen sclerosus of female genitalia 03/12/2023 Anogenital lichen sclerosus Circumscribed scleroderma 03/12/2023 Gastroesophageal reflux disease without esophagitis Esophageal reflux 03/24/2023 Allergic rhinitis due to dust Allergic rhinitis due to other allergen 03/31/2023 Chronic sinusitis, unspecified location 03/31/2023 Hearing loss of right ear, unspecified hearing loss type 03/31/2023 Impacted cerumen of right ear Impacted cerumen 03/31/2023 Post-nasal drip Postnasal drip 03/31/2023 Dysfunction of both eustachian tubes Dysfunction of Eustachian tube 03/31/2023 Dizziness and giddiness 04/17/2023 Elevated BP without diagnosis of hypertension 04/20/2023 Irritable bowel syndrome, unspecified type 04/22/2023 Anxiety disorder, unspecified type 04/23/2023 Mixed hyperlipidemia 04/23/2023 Benign hypertension Essential hypertension, benign 04/23/2023 Arthralgia, unspecified joint 04/23/2023 Gastroesophageal reflux disease without esophagitis Esophageal reflux 04/23/2023 Mixed hyperlipidemia 05/07/2023 Anxiety disorder, unspecified type 05/07/2023 Primary hypertension Unspecified essential hypertension 05/07/2023 Urinary tract infection without hematuria, site unspecified 05/12/2023 Anxiety Anxiety state, unspecified 05/12/2023 Malaise Other malaise and fatigue 05/13/2023 Dizziness Dizziness and giddiness 05/14/2023 Cough, unspecified type 06/02/2023 Sinus congestion Other diseases of nasal cavity and sinuses 06/02/2023 Influenza B Influenza with other respiratory manifestations 06/02/2023 Dizziness Dizziness and giddiness 06/04/2023 Benign hypertension Essential hypertension, benign 06/04/2023 Anxiety disorder, unspecified type 06/04/2023 Anxiety disorder, unspecified type 06/07/2023 Allergic rhinitis due to dust Allergic rhinitis due to other allergen 06/19/2023 Dysfunction of both eustachian tubes Dysfunction of Eustachian tube 06/19/2023 Bilateral impacted cerumen Impacted cerumen 06/19/2023 Right ear pain Otalgia, unspecified 06/19/2023 Anxiety disorder, unspecified type 07/02/2023 Benign hypertension Essential hypertension, benign 07/02/2023 Anxiety disorder, unspecified type 07/02/2023 Benign hypertension Essential hypertension, benign 07/02/2023 Mixed hyperlipidemia 10/09/2023 Arthralgia, unspecified joint 10/09/2023 Gastroesophageal reflux disease without esophagitis Esophageal reflux 10/09/2023 Encounter for gynecological examination (general) (routine) with abnormal findings 10/15/2023 Screening for vaginal cancer Special screening for malignant neoplasms, vagina 10/15/2023 Encounter for screening mammogram for malignant neoplasm of breast Other screening mammogram 10/15/2023 Screening for colon cancer Special screening for malignant neoplasms, colon 10/15/2023 Benign hypertension Essential hypertension, benign 10/22/2023 Gastroesophageal reflux disease without esophagitis Esophageal reflux 10/23/2023 Mixed hyperlipidemia 10/23/2023 Anxiety disorder, unspecified type 11/02/2023 Benign hypertension Essential hypertension, benign 11/07/2023 Cerebrovascular accident (CVA), unspecified mechanism 11/11/2023 Left-sided weakness Muscle weakness (generalized) 11/11/2023 TIA (transient ischemic attack) Unspecified transient cerebral ischemia 11/11/2023 Anxiety disorder, unspecified type 11/19/2023 Arthralgia, unspecified joint 11/19/2023 Anxiety disorder, unspecified type 11/19/2023 Benign hypertension Essential hypertension, benign 11/19/2023 Gastroesophageal reflux disease without esophagitis Esophageal reflux 11/19/2023 TIA (transient ischemic attack) Unspecified transient cerebral ischemia 11/19/2023 Encounter for screening mammogram for malignant neoplasm of breast Other screening mammogram 11/20/2023 TIA (transient ischemic attack) Unspecified transient cerebral ischemia 01/21/2024 Osteopenia of multiple sites 03/03/2024 Lichen sclerosus of female genitalia 03/03/2024 Anogenital lichen sclerosus Circumscribed scleroderma 03/03/2024 Osteopenia of multiple sites 03/03/2024 Cough, unspecified type 03/22/2024 Acute bronchitis, unspecified organism 03/22/2024 Acute cough 04/19/2024 Fever, unspecified fever cause 04/19/2024 Influenza A Influenza with other respiratory manifestations 04/19/2024 Sore throat Acute pharyngitis 05/06/2024 Strep pharyngitis Streptococcal sore throat 05/06/2024 Bilateral impacted cerumen Impacted cerumen 05/06/2024 Benign hypertension Essential hypertension, benign 05/10/2024 Routine lab draw Laboratory examination ordered as part of a routine general medical examination 05/10/2024 Benign hypertension Essential hypertension, benign 05/13/2024 Gastroesophageal reflux disease without esophagitis Esophageal reflux 05/13/2024 Arthralgia, unspecified joint 05/13/2024 Anxiety disorder, unspecified type 05/13/2024 Mixed hyperlipidemia 05/13/2024 Lichen sclerosus of female genitalia 09/06/2024 Anogenital lichen sclerosus Circumscribed scleroderma 09/06/2024 Pain of left hand Pain in limb 10/13/2024 Left wrist pain Pain in joint, forearm 10/13/2024 Pain of left hand Pain in limb 10/13/2024 Sprain of left wrist, initial encounter 10/13/2024 Care Teams Delimber Operator Relationship Specialty Start Date End Date Cheryl Ordonez APRN-DIVISION SUPERVISOR PCP - General Certified Nurse Practitioner 07/04/23
--- NOTE | 2024-11-23 12:50 | MM_ITS ---
Patient Name: THI ALVA MR#: [id number] : 1960 Exam Date: 11/23/2024 Ordering Doctor: STEPH AUSTIN TEACHER ASSISTANT-C RADIOLOGY REPORT PROCEDURE: MM TOMOSYNTHESIS SCREENING BI COMPARISON: MG MAMM SCREEN 3D THIEN CAD, 11/20/2023. MG MAMM SCREEN 3D THIEN CAD, 10/21/2022. MG MAMM SCREEN 3D THIEN CAD, 10/18/2021. MG MAMM SCREEN 3D THIEN CAD, 10/12/2020. INDICATIONS: screening Calculator Name NCI Breast Cancer Risk Assessment Tool 5 Year Breast Cancer Risk 1.20% Lifetime Breast Cancer Risk 4.40% Personal Breast Cancer No Personal Ovarian Cancer No Treatments None Family Cancers Brother with stomach cancer at age 50; Son with esophageal cancer at age 48. LOCATION: [facility] BREAST COMPOSITION: There are scattered areas of fibroglandular density. FINDINGS: DIAGNOSTIC CATEGORY 1--NEGATIVE. RIGHT BREAST: No significant suspicious finding. LEFT BREAST: No significant suspicious finding. RECOMMENDATIONS: ROUTINE MAMMOGRAM AND CLINICAL EVALUATION IN 12 MONTHS. Dictated by: Ricky Marx DO on 11/23/2024 at 14:49 Approved by: Ricky Marx DO on 11/23/2024 at 14:50
== END 2024-11-23 12:46 | disposition home or self-care (01) ==
LOC: MAMMO 12:45
PROVIDERS: PCP Nurse Practitioner Family; Visit Provider Nurse Practitioner Family
DX: Z12.31 Encounter for screening mammogram for malignant neoplasm of breast (principal); Z80.0 Family history of malignant neoplasm of digestive organs; Z80.8 Family history of malignant neoplasm of other organs or systems
CPT/HCPCS: 77063; 77067